=== PATIENT | female | born 1960 | race Caucasian/White ===

== ENCOUNTER 2016-05-23 11:32 | Emergency (ER) | payer OTHER ==
[~2016-05-23] VITALS: Ht 154.9 cm; Wt 55.8 kg
[~2016-05-23 11:32] MED LIST: ALPR2TAB5 PO; HYDR-971 PO; LAMO100T5 PO; LAMO200T3 PO; LEVE100020 PO; NAPR550T PO; OMEP40CA5 PO; PRAZ2CAP2 PO
[2016-05-23 12:15] VITALS: BP 158/95
[2016-05-23] MEDS ORDERED: PROAIR HFA8.5 GM INH (12:48)
[2016-05-23] MEDS ORDERED: AZIT250T PO (12:48)
[2016-05-23] MEDS ORDERED: PRED20TA PO (12:48)
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
== END 2016-05-23 12:57 | disposition home or self-care (01) ==
LOC: ER 11:32
DX: J06.9 Acute upper respiratory infection, unspecified (principal); F43.10 Post-traumatic stress disorder, unspecified; K21.9 Gastro-esophageal reflux disease without esophagitis; F31.9 Bipolar disorder, unspecified; Z88.1 Allergy status to other antibiotic agents; Z88.5 Allergy status to narcotic agent
CPT/HCPCS: 99283

== ENCOUNTER 2016-11-18 09:48 | Emergency (ER) | payer OTHER ==
[~2016-11-18] VITALS: Ht 157.5 cm; Wt 48.5 kg
[~2016-11-18 09:48] MED LIST changes: +AZIT250T PO; +PRED20TA PO; +PROAIR HFA8.5 GM INH
[2016-11-18] MEDS ORDERED: 0.9 % SODIUM CHLORIDE 10 ML DISP.SYRIN. IV PRN (10:00)
[2016-11-18] MEDS ORDERED: IV NORMAL SALINE 1000ML BAG 1,000 ML IV SCH (10:15)
[2016-11-18] MEDS ORDERED: ONDANSETRON PF 4 MG/2 ML VIAL. IV ONE (10:15)
--- NOTE | 2016-11-18 10:19 | EKG ---
[facility] [address] [place] [address] Test Date: 2016-11-18 Test Time: 10:05:29 Pat Name: KRIS ROMERO Department: Room: Gender: F [employer]tr [employer]: : 1960 Requested By: EMIR TUTTLE Order Number: [id number] Reading MD: Measurements Intervals [place] Rate: 62 P: 51 [place]: 158 QRS: 22 QRSD: 76 T: 53 QT: 372 QTc: 380 Interpretive Statements SINUS RHYTHM OTHERWISE NORMAL ECG RI6.01 Unconfirmed report No previous ECG available for comparison
[2016-11-18 10:28] LABS: BASO % 1 % (0-3); EOS % 1 % (0-3); HEMATOCRIT 42.8 % (36.0-47.0); HEMOGLOBIN 14.5 g/dL (12.0-15.5); LYMPH # 2.5 x10^3/uL (1.0-4.8); LYMPH % 41 % (24-48); MEAN CORPUSCULAR HEMOGLOBIN 31 pg (25-35); MEAN CORPUSCULAR HGB CONC 34 g/dL (31-37); MEAN CORPUSCULAR VOLUME 92 fL (79-100); MONO % 7 % (0-9); NEUT % 52 % (31-73); PLATELET COUNT 300 x10^3/uL (140-400); RED BLOOD COUNT 4.68 x10^6/uL (3.50-5.40); RED CELL DISTRIBUTION WIDTH 12.6 % (11.5-14.5); WHITE BLOOD COUNT 6.2 x10^3/uL (4.0-11.0)
[2016-11-18] MEDS ORDERED: MIDAZOLAM HCL/PF 5 MG/5 ML VIAL. IV ONE (10:30)
--- NOTE | 2016-11-18 10:33 | RAD ---
Indication fall. Loss of consciousness. Syncopal episode. A single view of the chest was obtained and is compared to an exam 07/08/2014. The heart and pulmonary vessels appear normal. The lungs are clear. There is no pleural fluid or pneumothorax. Scoliosis is noted. A significant change relative to the previous exam is not seen. IMPRESSION: No acute finding. No significant change
[2016-11-18 10:38] LABS: CALCIUM 9.5 mg/dL (8.5-10.1); GFR 56.9; POTASSIUM 3.9 mmol/L (3.5-5.1)
[2016-11-18 10:44] LABS: ALBUMIN 4.2 g/dL (3.4-5.0); DIRECT BILIRUBIN 0.1 mg/dL (0.0-0.2); TOTAL BILIRUBIN 0.5 mg/dL (0.2-1.0); TOTAL PROTEIN 7.3 g/dL (6.4-8.2)
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
[2016-11-18 10:52] LABS: CKMB MASS 0.8 ng/mL (0.0-3.6); CREATINE KINASE 62 U/L (26-192)
[2016-11-18] MEDS ORDERED: ONDA4TAB10 PO (10:54)
[2016-11-18 11:01] VITALS: BP 169/78
== END 2016-11-18 11:08 | disposition home or self-care (01) ==
LOC: ER 09:48
DX: F41.0 Panic disorder [episodic paroxysmal anxiety] (principal); R11.2 Nausea with vomiting, unspecified; R06.02 Shortness of breath; R07.89 Other chest pain; R20.2 Paresthesia of skin; F31.9 Bipolar disorder, unspecified; R06.4 Hyperventilation; F43.10 Post-traumatic stress disorder, unspecified; K21.9 Gastro-esophageal reflux disease without esophagitis; G43.909 Migraine, unspecified, not intractable, without status migrainosus; F12.10 Cannabis abuse, uncomplicated; Z87.891 Personal history of nicotine dependence; Z87.820 Personal history of traumatic brain injury; Z90.710 Acquired absence of both cervix and uterus; Z90.721 Acquired absence of ovaries, unilateral; Z88.5 Allergy status to narcotic agent; Z88.1 Allergy status to other antibiotic agents; Z88.8 Allergy status to other drugs, medicaments and biological substances
CPT/HCPCS: 36415; 71010; 80048; 80076; 82553; 83735; 83880; 84443; 84484; 85027; 93005; 96361; 96374; 99285; J2405; J7030

== ENCOUNTER 2017-01-02 15:27 | Emergency (ER) | payer OTHER ==
[~2017-01-02] VITALS: Ht 154.9 cm; Wt 53.1 kg
[~2017-01-02 15:27] MED LIST changes: +NAPR-682 PO; -NAPR550T PO; +ONDA4TAB10 PO
[2017-01-02 16:16] VITALS: BP 125/68
--- NOTE | 2017-01-02 17:33 | PHYS DOC ---
Past Medical History Past Medical History: Anxiety, Bipolar, Cancer, Depression, GERD, Migraines, Other Additional Past Medical Histor: TBI,night terrors,PTSD,PANIC ATTACKS,CERVICAL CA Past Surgical History: Cancer Surgery, Hysterectomy, Oophorectomy, Tonsillectomy, Other Additional Past Surgical Histo: cervical CA, lt.inguinal hernia repair, Alcohol Use: None Drug Use: Marijuana Adult General Chief Complaint Chief Complaint: FOREIGNBODY EAR HPI HPI Patient is a 56 year old female with history of anxiety, depression, GERD, who presents today stating she believes she has a piece of hearing inside the right ear. Patient denies any hearing loss. Review of Systems Review of Systems Constitutional: Denies fever or chills [] Eyes: Denies change in visual acuity, redness, or eye pain [] HENT: Foreign body to the right ear Musculoskeletal: Denies back pain or joint pain [] Integument: Denies rash or skin lesions [] Neurologic: Denies headache, focal weakness or sensory changes [] Allergies Allergies Allergies Coded Allergies Type Severity Reaction Last Updated Verified morphine Allergy Intermediate Unknown 10/10/13 No tetracycline Allergy Intermediate nausea 02/22/14 Yes lorazepam Allergy Unknown "IT DOES ME WRONG" 11/18/16 Yes Physical Exam Physical Exam Constitutional: Well developed, well nourished, no acute distress, non-toxic appearance. [] HENT: Normocephalic, atraumatic, bilateral external ears normal, oropharynx moist, no oral exudates, nose normal. [] Right ear canal has no foreign object. Skin: Warm, dry, no erythema, no rash. [] Back: No tenderness, no CVA tenderness. [] Extremities: No tenderness, no cyanosis, no clubbing, ROM intact, no edema. [] Neurologic: Alert and oriented X 3, normal motor function, normal sensory function, no focal deficits noted. [] Psychologic: Affect normal, judgement normal, mood normal. [] Current Patient Data Vital Signs Vital Signs Date Time Temp Pulse Resp B/P (MAP) Pulse Ox O2 Delivery O2 Flow Rate FiO2 01/02/17 16:16 98.4 57 18 98 Room Air 98.4 EKG EKG [] Radiology/Procedures Radiology/Procedures [] Course & Med Decision Making Course & Med Decision Making Pertinent Labs and Imaging studies reviewed. (See chart for details) Patient is in the ED with complaints of ear ringing in her right ear canal. I evaluated patient's right ear there was no foreign object RN Bhavana evaluated patient's right ear, there was no foreign object. We did flush the right ear canal, mild amount of cerumen was removed. Patient was discharged with instructions to follow-up with ENT of her choice. Dragon Disclaimer Dragon Disclaimer This electronic medical record was generated, in whole or in part, using a voice recognition dictation system. Departure Departure Impression: Primary Impression: Impacted cerumen of right ear Additional Impression: Foreign body of ear, right Disposition: HOME, SELF-CARE Condition: STABLE Referrals: LUCIANO MORENO MD (PCP) follow up with an ENT doctor of you choice Patient Instructions: Cerumen Impaction, Ear Foreign Body, [id number] Additional Instructions: You were seen for a possible foreign body to the right ear, none was found on exam. Follow up with ENT doctor over choice. Problem Qualifiers Additional Impression: Foreign body of ear, right Encounter type: initial encounter Qualified Codes: T16.1XXA - Foreign body in right ear, initial encounter JOCELYN NINO YEAST DISTILLER Jan 02, 2017 17:33
== END 2017-01-02 17:38 | disposition home or self-care (01) ==
LOC: ER 15:27
DX: H61.21 Impacted cerumen, right ear (principal); T16.1XXA Foreign body in right ear, initial encounter; K21.9 Gastro-esophageal reflux disease without esophagitis; F43.10 Post-traumatic stress disorder, unspecified; F31.9 Bipolar disorder, unspecified; G43.909 Migraine, unspecified, not intractable, without status migrainosus; Z87.820 Personal history of traumatic brain injury; Z88.5 Allergy status to narcotic agent; Z88.1 Allergy status to other antibiotic agents; Z88.8 Allergy status to other drugs, medicaments and biological substances; Y93.89 Activity, other specified; Y99.8 Other external cause status; Y92.89 Other specified places as the place of occurrence of the external cause
CPT/HCPCS: 69209; 99281; 99282

== ENCOUNTER → 2017-03-06 | Day surgery (SDC) | payer OTHER ==
[~2017-03-06] MED LIST changes: +ASPI-630 PO; +IV RINGERS,LACTATED 1000ML 1,000 ML IV SCH; +LIDOCAINE 1% PF 2 ML VIAL. ID PRN; +LIDOCAINE 2% PF Vial for OR 5 ML VIAL. ONE; +PROCHLORPERAZINE 10 MG/2 ML VIAL. IV PRN; +PROPOFOL 40 ML IV ONE; +fentaNYL PF VIAL 100 MCG/2 ML VIAL IV PRN
--- NOTE | 2017-03-06 12:31 | PDOC1 ---
History and Physical Date of Admission Date of Admission DATE: 03/06/17 TIME: 12:26 Source Source: Chart review, Patient History of Present Illness History of Present Illness 57 y/o female with positive Cologuard testing. No symptoms referable. No GI FH above GB disease. No prior colonoscopy. Long h/o heartburn, on PPI chronically. No prior EGD. Past Medical History Psych: Anxiety, Depression Past Surgical History Past Surgical History: Tonsillectomy, Hysterectomy Family History Family History: Coronary Artery Disease, Hypertension, Stroke Social History Smoke: Quit ALCOHOL: rare Drugs: None Current Medications Current Medications Current Medications Fentanyl Citrate (Fentanyl 2ml Vial) 25 mcg PRN Q5MIN PRN IV MILD PAIN; Start 03/06/17 at 07:00; Stop 03/06/17 at 18:00 Fentanyl Citrate (Fentanyl 2ml Vial) 50 mcg PRN Q5MIN PRN IV MODERATE PAIN; Start 03/06/17 at 07:00; Stop 03/06/17 at 18:00 Ringer's Solution 1,000 ml @ 30 mls/hr Q24H IV ; Start 03/06/17 at 07:00; Stop 03/06/17 at 18:59 Lidocaine HCl (Xylocaine-Mpf 1% Vial) 2 ml PRN 1X PRN ID PRIOR TO IV START; Start 03/06/17 at 07:00; Stop 03/06/17 at 18:00 Prochlorperazine Edisylate (Compazine) 5 mg PACU PRN PRN IV NAUSEA, MRX1; Start 03/06/17 at 07:00; Stop 03/06/17 at 18:00 Active Scripts Active Zofran Odt (Ondansetron) 4 Mg Tab.rapdis 4 Mg PO BID PRN 5 Days Proair Hfa Inhaler (Albuterol Sulfate) 8.5 Gm Hfa.aer.ad 1 Puff INH PRN Q6HRS PRN Reported Aspirin 81 Mg Tab.chew 81 Mg PO Lamictal (Lamotrigine) 100 Mg Tablet 100 Mg PO BID 100mg at noon and 100 mg at bedtime. Omeprazole 40 Mg Capsule.dr 40 Mg PO DAILY Keppra (Levetiracetam) 1,000 Mg Tablet 1,000 Mg PO BID Alprazolam 2 Mg Tablet 2 Mg PO TID Allergies Allergies: Coded Allergies: morphine (Unverified Allergy, Intermediate, Unknown, 03/06/17) lorazepam (Verified Adverse Reaction, Intermediate, "IT DOES ME WRONG", ) tetracycline (Verified Adverse Reaction, Intermediate, nausea, 03/06/17) ROS Review of System Otherwise negative. Physical Exam General: Alert, Oriented X3, Cooperative, No acute distress Lungs: Clear to auscultation Heart: S1S2, RRR, no gallops, no murmurs Abdomen: Normal bowel sounds, Soft, No tenderness, No hepatosplenomegaly, No masses Rectal Exam: deferred (to procedure) Extremities: No cyanosis, No edema Skin: No significant lesion Neuro: Normal gait, Normal speech, Strength at 5/5 X4 ext, Normal tone, Sensation intact, Cranial nerves 3-12 NL, Reflexes 2+ Psych/Mental Status: Mental status NL, Mood NL Vitals Vitals See nursing notes. VTE Prophylaxis Ordered VTE Prophylaxis Devices: No VTE Pharmacological Prophylaxi: No Assessment/Plan Assessment/Plan IMP: Positive FIT screen Chronic heartburn, r/o Rendon's. PLAN: colonoscopy/EGD LANE BATRES MD Mar 06, 2017 12:31
--- NOTE | 2017-03-06 13:31 | PDOC4 ---
PROCEDURE Procedure EGD/colonoscopy Indications: Chronic heartburn, r/o Rendon's/Screen, positive Cologuard Meds: per anesthesia Findings: E--Healed, grade indeterminate, reflux at GE junction. G--Normal D--Normal to second portion. CRISTÓBAL: normal. Scope advanced to TI. Mucosa normal. Scattered diverticula sigmoid to mid- transverse. NO polyps, masses, etc. Retroflex normal. Yoni well. IMP: Healed reflux, no Rendon's Diverticulosis Rec: Resume meds, diet. F/u with me prn. Consider repeat colonoscopy in 10 years. No need to repeat EGD unless persistent dysphagia or for evaluation of bleeding/anemia. LANE BATRES MD Mar 06, 2017 13:31
[2017-03-06 13:45] VITALS: BP 162/5
== END | disposition home or self-care (01) ==
LOC: ENDOS 11:47
PROVIDERS: ATTEND Internal Medicine Gastroenterology
DX: Z12.11 Encounter for screening for malignant neoplasm of colon (principal); K57.30 Diverticulosis of large intestine without perforation or abscess without bleeding; K21.0 Gastro-esophageal reflux disease with esophagitis; F41.9 Anxiety disorder, unspecified; F32.9 Major depressive disorder, single episode, unspecified; Z72.89 Other problems related to lifestyle; Z87.891 Personal history of nicotine dependence; Z90.710 Acquired absence of both cervix and uterus
CPT/HCPCS: 43235; 45378; J2704; J2001

== ENCOUNTER 2017-10-04 11:05 | Emergency (ER) | payer OTHER ==
[2017-10-04] MEDS: IV NORMAL SALINE 1000ML BAG 1,000 ML IV (11:44)
[2017-10-04 11:49] LABS: ADD MAN DIFF? NO
[2017-10-04 11:52] LABS: BILIRUBIN,URINE NEGATIVE (NEG); COLOR,URINE YELLOW; GLUCOSE,URINE NEGATIVE (NEG); NITRITE,URINE NEGATIVE (NEG); PROTEIN,URINE NEGATIVE (NEG-TRACE); UROBILINOGEN,URINE 0.2 mg/dL (0.2 mg/dL)
[2017-10-04 11:54] LABS: BASO # 0.1 x10^3/uL (0.0-0.2); BASO % 1 % (0-3); EOS % 1 % (0-3); HEMATOCRIT 38.3 % (36.0-47.0); HEMOGLOBIN 13.1 g/dL (12.0-15.5); LYMPH # 3.3 x10^3/uL (1.0-4.8); LYMPH % 40 % (24-48); MEAN CORPUSCULAR HEMOGLOBIN 32 pg (25-35); MEAN CORPUSCULAR HGB CONC 34 g/dL (31-37); MEAN CORPUSCULAR VOLUME 94 fL (79-100); MONO # 0.5 x10^3/uL (0.0-1.1); MONO % 6 % (0-9); NEUT # 4.4 x10^3uL (1.8-7.7); NEUT % 53 % (31-73); PLATELET COUNT 302 x10^3/uL (140-400); RED BLOOD COUNT 4.08 x10^6/uL (3.50-5.40); RED CELL DISTRIBUTION WIDTH 12.4 % (11.5-14.5); WHITE BLOOD COUNT 8.2 x10^3/uL (4.0-11.0)
[2017-10-04 11:59] LABS: CLARITY,URINE CLEAR
[2017-10-04 12:00] LABS: BACTERIA,URINE 0 /HPF (0-FEW); RBC,URINE 0 /HPF (0-2); SQUAMOUS EPITHELIAL CELL,UR FEW /LPF; WBC,URINE OCC /HPF (0-4)
[2017-10-04 12:01] LABS: ANION GAP 10 (6-14); BLOOD UREA NITROGEN 9 mg/dL (7-20); BUN/CREATININE RATIO 10 (6-20); CALCIUM 9.3 mg/dL (8.5-10.1); CARBON DIOXIDE 28 mmol/L (21-32); CHLORIDE 104 mmol/L (98-107); CREATININE 0.9 mg/dL (0.6-1.0); GFR 64.1; GLUCOSE 94 mg/dL (70-99); POTASSIUM 3.7 mmol/L (3.5-5.1); SODIUM 142 mmol/L (136-145)
[2017-10-04 12:06] LABS: CREATINE KINASE 87 U/L (26-192)
[2017-10-04 12:07] LABS: ALBUMIN 3.7 g/dL (3.4-5.0); ALBUMIN/GLOBULIN RATIO 1.2 (1.0-1.7); ALK PHOS 39 U/L (46-116); ALT (SGPT) 15 U/L (14-59); AST (SGOT) 12 U/L (15-37); TOTAL BILIRUBIN 0.3 mg/dL (0.2-1.0); TOTAL PROTEIN 6.9 g/dL (6.4-8.2)
[2017-10-04] MEDS: ONDANSETRON PF 4 MG/2 ML VIAL. IV (12:19)
== END 2017-10-04 13:50 | disposition home or self-care (01) ==
LOC: ER 11:05
DX: R53.1 Weakness (principal); R11.2 Nausea with vomiting, unspecified; M79.1 Myalgia; F43.10 Post-traumatic stress disorder, unspecified; K21.9 Gastro-esophageal reflux disease without esophagitis; F31.9 Bipolar disorder, unspecified; Z90.710 Acquired absence of both cervix and uterus; Z90.722 Acquired absence of ovaries, bilateral; F12.10 Cannabis abuse, uncomplicated; Z98.890 Other specified postprocedural states; Z88.1 Allergy status to other antibiotic agents; Z88.5 Allergy status to narcotic agent; Z88.8 Allergy status to other drugs, medicaments and biological substances
CPT/HCPCS: 36415; 80053; 81001; 82550; 85025; 96361; 96374; 99284-25; J2405; J7030

== ENCOUNTER 2017-11-14 16:03 | Emergency (ER) | payer OTHER ==
[2017-11-14 16:50] LABS: ADD MAN DIFF? NO
[2017-11-14] MEDS: IV NORMAL SALINE 1000ML BAG 1,000 ML IV (16:52)
[2017-11-14 16:55] LABS: BASO % 1 % (0-3); EOS % 1 % (0-3); HEMATOCRIT 38.6 % (36.0-47.0); HEMOGLOBIN 13.1 g/dL (12.0-15.5); LYMPH # 3.1 x10^3/uL (1.0-4.8); LYMPH % 48 % (24-48); MEAN CORPUSCULAR HEMOGLOBIN 32 pg (25-35); MEAN CORPUSCULAR HGB CONC 34 g/dL (31-37); MEAN CORPUSCULAR VOLUME 95 fL (79-100); MONO # 0.4 x10^3/uL (0.0-1.1); MONO % 6 % (0-9); NEUT # 2.9 x10^3uL (1.8-7.7); NEUT % 45 % (31-73); PLATELET COUNT 294 x10^3/uL (140-400); RED BLOOD COUNT 4.08 x10^6/uL (3.50-5.40); RED CELL DISTRIBUTION WIDTH 12.6 % (11.5-14.5); WHITE BLOOD COUNT 6.4 x10^3/uL (4.0-11.0)
[2017-11-14 17:00] LABS: ANION GAP 8 (6-14); BLOOD UREA NITROGEN 8 mg/dL (7-20); CALCIUM 8.8 mg/dL (8.5-10.1); CARBON DIOXIDE 32 mmol/L (21-32); CHLORIDE 104 mmol/L (98-107); GFR 56.7; GLUCOSE 94 mg/dL (70-99); POTASSIUM 3.5 mmol/L (3.5-5.1); SODIUM 144 mmol/L (136-145)
[2017-11-14 17:06] LABS: ACETAMIN < 2 mcg/ml (10-30); SALIC 3.3 mg/dL (2.8-20.0)
[2017-11-14 17:07] LABS: ETHANOL < 10 mg/dL (0-10)
[2017-11-14 17:10] LABS: BILIRUBIN,URINE NEGATIVE (NEG); CLARITY,URINE CLEAR; COLOR,URINE YELLOW; GLUCOSE,URINE NEGATIVE (NEG); NITRITE,URINE NEGATIVE (NEG); PH,URINE 7.5; PROTEIN,URINE NEGATIVE (NEG-TRACE); UROBILINOGEN,URINE 0.2 mg/dL (0.2 mg/dL)
[2017-11-14 17:19] LABS: BACTERIA,URINE 0 /HPF (0-FEW); RBC,URINE OCC /HPF (0-2); SQUAMOUS EPITHELIAL CELL,UR OCC /LPF; WBC,URINE OCC /HPF (0-4)
[2017-11-14 17:21] LABS: AMPHETAMINE/METHAMPHETAMINE NEG (NEG); BARBITURATES NEG (NEG); BENZODIAZEPINES POS (NEG); CANNABINOIDS POS (NEG); COCAINE NEG (NEG); ETHANOL, URINE NEG (NEG); METHADONE NEG (NEG); OPIATES NEG (NEG); PHENCYCLIDINE NEG (NEG)
== END 2017-11-14 19:57 | disposition home or self-care (01) ==
LOC: ER 16:03
DX: Z77.098 Contact with and (suspected) exposure to other hazardous, chiefly nonmedicinal, chemicals (principal); F41.9 Anxiety disorder, unspecified; F31.9 Bipolar disorder, unspecified; K21.9 Gastro-esophageal reflux disease without esophagitis; G43.909 Migraine, unspecified, not intractable, without status migrainosus; Z90.710 Acquired absence of both cervix and uterus; Z88.5 Allergy status to narcotic agent; Z88.1 Allergy status to other antibiotic agents; Z88.8 Allergy status to other drugs, medicaments and biological substances
CPT/HCPCS: 36415; 80048; 80307; 80329; 81001; 85025; 93005; 99285-25; G0480; G6039; J7030

== ENCOUNTER → 2020-06-04 | Outpatient (CLI) | payer MEDICARE ==
[2017-11-14 19:08] VITALS: BP 111/62
[~2020-06-04] MED LIST changes: +ALBU2.5V8 INH; +CRESTOR40 MG PO; +HYDR-3164 PO; -HYDR-971 PO; -IV RINGERS,LACTATED 1000ML 1,000 ML IV SCH; -LIDOCAINE 1% PF 2 ML VIAL. ID PRN; -LIDOCAINE 2% PF Vial for OR 5 ML VIAL. ONE; -OMEP40CA5 PO; +OMEP40CA7 PO; -PROAIR HFA8.5 GM INH; -PROCHLORPERAZINE 10 MG/2 ML VIAL. IV PRN; -PROPOFOL 40 ML IV ONE; -fentaNYL PF VIAL 100 MCG/2 ML VIAL IV PRN
--- NOTE | 2020-06-08 11:01 | RAD ---
DATE: 06/04/2020 12:43 PM EXAM: DIGITAL SCREEN BILAT W/CAD HISTORY: Screening COMPARISON: 06/17/2008 Bilateral full field craniocaudal and mediolateral oblique images were obtained using digital technique. This study was interpreted with the benefit of Computerized Aided Detection (CAD). FINDINGS: Breast Density: FATTY The Breast Parenchyma is primarily fatty replaced. Breast parenchyma level density A. No suspicious masses, microcalcifications or architectural distortion is present to suggest malignancy in either breast. The visualized axillae are unremarkable. IMPRESSION: No mammographic evidence of malignancy. BI-RADS CATEGORY: 1 NEGATIVE RECOMMENDED FOLLOW-UP: 12M 12 MONTH FOLLOW-UP Annual screening mammography is recommended, unless clinically indicated sooner based on symptoms or change in physical exam. PQRS compliance statement: Patient information was entered into a reminder system with a target due date for the next mammogram. Mammography is a sensitive method for finding small breast cancers, but it does not detect them all and is not a substitute for careful clinical examination. A negative mammogram does not negate a clinically suspicious finding and should not result in delay in biopsying a clinically suspicious abnormality. "Our facility is accredited by the [employer] Mammography Program."
== END ==
LOC: MAMMO 12:43
PROVIDERS: ATTEND Family Medicine
DX: Z12.31 Encounter for screening mammogram for malignant neoplasm of breast (principal)
CPT/HCPCS: 77067

== ENCOUNTER 2020-07-31 12:16 | Inpatient (IN) | payer MEDICARE ==
[~2020-07-31] VITALS: Ht 154.9 cm; Wt 54.3 kg
[~2020-07-31 12:16] MED LIST changes: -CRESTOR40 MG PO; +OMEP40CA45 PO; -OMEP40CA7 PO
[2020-07-31] MEDS ORDERED: ONDANSETRON PF 4 MG/2 ML VIAL. IV ONE (13:15)
[2020-07-31] MEDS ORDERED: fentaNYL PF VIAL 100 MCG/2 ML VIAL IV ONE ×2 (13:15→14:00)
[2020-07-31] MEDS ORDERED: IV NORMAL SALINE 1000ML BAG 1,000 ML IV ONE (13:15)
[2020-07-31 13:25] LABS: FECAL OB PT POSITIVE (NEG)
[2020-07-31 13:31] LABS: BASO # 0.1 x10^3/uL (0.0-0.2); BASO % 0 % (0-3); EOS % 0 % (0-3); HEMOGLOBIN 13.3 g/dL (12.0-15.5); LYMPH # 1.8 x10^3/uL (1.0-4.8); LYMPH % 9 % (24-48); MEAN CORPUSCULAR HEMOGLOBIN 31 pg (25-35); MEAN CORPUSCULAR HGB CONC 33 g/dL (31-37); MEAN CORPUSCULAR VOLUME 94 fL (79-100); MONO # 0.8 x10^3/uL (0.0-1.1); MONO % 4 % (0-9); NEUT # 16.8 x10^3/uL (1.8-7.7); NEUT % 86 % (31-73); PLATELET COUNT 301 x10^3/uL (140-400); RED BLOOD COUNT 4.25 x10^6/uL (3.50-5.40); WHITE BLOOD COUNT 19.5 x10^3/uL (4.0-11.0)
[2020-07-31 13:43] LABS: CALCIUM 9.5 mg/dL (8.5-10.1); GFR 56.2; POTASSIUM 3.4 mmol/L (3.5-5.1)
[2020-07-31 13:49] LABS: ALBUMIN/GLOBULIN RATIO 1.1 (1.0-1.7); MAGNESIUM 2.2 mg/dL (1.8-2.4); TOTAL BILIRUBIN 0.3 mg/dL (0.2-1.0); TOTAL PROTEIN 7.5 g/dL (6.4-8.2)
[2020-07-31 13:55] LABS: % BANDS 2 % (0-9); % LYMPHS 5 % (24-48); % MONOS 1 % (0-10); % SEGS 92 % (35-66); PLT ESTIMATE ADEQUATE (ADEQUATE)
[2020-07-31] MEDS ORDERED: CONTRAST GIVEN. MC PRN (14:15)
[2020-07-31] MEDS ORDERED: IOHEXOL 300 MG/ML 100ML VIAL. IV ONE (14:15)
[2020-07-31 14:17] LABS: BILIRUBIN,URINE NEGATIVE (NEG); CLARITY,URINE CLOUDY; COLOR,URINE YELLOW; NITRITE,URINE NEGATIVE (NEG); PH,URINE 7.5 (<5.0-8.0); PROTEIN,URINE NEGATIVE (NEG-TRACE); UROBILINOGEN,URINE 0.2 mg/dL (0.2 mg/dL)
[2020-07-31 14:23] LABS: RBC,URINE 0 /HPF (0-2); WBC,URINE OCC /HPF (0-4)
[2020-07-31 14:24] LABS: AMORPHOUS SEDIMENT,UR PRESENT /HPF; BACTERIA,URINE 0 /HPF (0-FEW)
--- NOTE | 2020-07-31 14:43 | RAD ---
INDICATION: Reason: Bloody diarrhea, lower abdominal pain / Spl. Instructions: OMNI 300 INJ 60 MLS / History: . COMPARISON: None. TECHNIQUE: Axial CT images obtained through the abdomen and pelvis with contrast. One or more of the following individualized dose reduction techniques were utilized for this examinat ion: 1. Automated exposure control; 2. Adjustment of the mA and/or kV according to patient size; 3 . Use of iterative reconstruction technique. FINDINGS: Mild linear opacity right lung base can be seen with atelectasis. Moderate calcific atherosclerosis. No intrahepatic bile duct dilation. No peripancreatic fluid collection. Spleen unremarkable. No hydronephrosis. Urinary bladder is partially distended. Wall thickening is seen throughout large portion of the colon with some mild indistinctness of the ad jacent fat. No periappendiceal inflammatory changes. No dilated loops of bowel to suggest obstruction. Scoliotic curvature the spine with multilevel degenerative changes with associated central canal and neural foraminal stenosis. IMPRESSION: * Wall thickening of the colon with adjacent mild edema to the fat. Can be seen with causes such as colitis. Electronically signed by: Seb Burton MD (07/31/2020 2:40 PM) [id number]
--- NOTE | 2020-07-31 14:46 | ED.ADGEN ---
Past Medical History Past Medical History: Anxiety, Bipolar, Cancer, Depression, GERD, Migraines, Other Additional Past Medical Histor: TBI,night terrors,PTSD,PANIC ATTACKS,CERVICAL CA Past Surgical History: Cancer Surgery, Hysterectomy, Oophorectomy, Tonsillectomy, Other Additional Past Surgical Histo: cervical CA, lt.inguinal hernia repair, Smoking Status: Current Every Day Smoker Alcohol Use: None Drug Use: Marijuana General Adult EDM: Chief Complaint: BLOODY STOOL HPI: HPI: Patient is a 60 year old female who presents emergency department with complaints of lower abdominal pain and bloody diarrhea that began today. Patient states she has had more than 5 episodes of bloody diarrhea today. She denies any history of hemorrhoids, and patient states she has been taking a baby aspirin for the last 2 days for her heart health. She denies any other use of blood thinners. Patient denies any constipation, back pain, dysuria, hematuria, or increased urinary frequency. She denies any fever, cough, body aches, sore throat, or shortness of breath. Patient complains of nausea and sharp cramping lower abdominal pain at this time. She currently rates her discomfort a 10 out of 10 on the pain scale, she denies any alleviating or exacerbating factors. Review of Systems: Review of Systems: Complete ROS is negative unless otherwise noted in HPI. Current Medications: Current Medications Medications (Trade) Dose Ordered Sig/Susan Start Time Stop Time Status Last Admin Dose Admin Ciprofloxacin/ Dextrose 200 ml @ 200 mls/hr 1X ONCE 07/31/20 15:15 07/31/20 16:14 DC Diphenhydramine HCl (Benadryl) 12.5 mg 1X ONCE 07/31/20 15:15 07/31/20 15:16 DC 07/31/20 15:24 12.5 MG Fentanyl Citrate (Fentanyl 2ml Vial) 50 mcg 1X ONCE 07/31/20 14:00 07/31/20 14:01 DC 07/31/20 14:08 50 MCG Hydromorphone HCl (Dilaudid) 0.5 mg 1X ONCE 07/31/20 15:15 07/31/20 15:16 DC 07/31/20 15:25 0.5 MG Info (CONTRAST GIVEN -- Rx MONITORING) 1 each PRN DAILY PRN 07/31/20 14:15 08/02/20 14:14 Iohexol (Omnipaque 300 Mg/ml) 60 ml 1X ONCE 07/31/20 14:15 07/31/20 14:16 DC 07/31/20 14:18 60 ML Metronidazole 100 ml @ 100 mls/hr 1X ONCE 07/31/20 15:15 07/31/20 16:14 DC 07/31/20 15:29 100 MLS/HR Ondansetron HCl (Zofran) 4 mg PRN Q8HRS PRN 07/31/20 15:15 08/01/20 15:14 07/31/20 15:24 4 MG Sodium Chloride 1,000 ml @ 125 mls/hr Q8H 07/31/20 15:15 08/01/20 15:14 07/31/20 15:29 125 MLS/HR Allergies: Allergies: Allergies Coded Allergies Type Severity Reaction Last Updated Verified morphine Allergy Intermediate Unknown 03/06/17 No lorazepam Adverse Reaction Intermediate "IT DOES ME WRONG" 03/06/17 Yes tetracycline Adverse Reaction Intermediate nausea 03/06/17 Yes Physical Exam: PE: See Above Constitutional: Well developed, well nourished, no acute distress, non-toxic appearance, appears uncomfortable. [] HENT: Normocephalic, atraumatic, bilateral external ears normal, nose normal. [] Eyes: PERRLA, EOMI, conjunctiva normal, no discharge. [] Neck: Normal range of motion, no stridor. [] Cardiovascular:Heart rate regular rhythm Lungs & Thorax: Respirations even and unlabored, no retractions, no respiratory distress Abdomen: soft, lower abdominal tenderness to palpation, no rebound tenderness, no guarding, no palpable masses Skin: Warm, dry, no erythema, no rash. [] Extremities: No cyanosis, ROM intact, no edema. [] Neurologic: Alert and oriented X 3, no focal deficits noted. [] Psychologic: Affect normal, judgement normal, mood normal. [] Current Patient Data: Labs: Laboratory Tests Test 07/31/20 13:00 07/31/20 13:15 07/31/20 14:05 Stool Occult Blood Positive (NEG) White Blood Count 19.5 x10^3/uL (4.0-11.0) H Red Blood Count 4.25 x10^6/uL (3.50-5.40) Hemoglobin 13.3 g/dL (12.0-15.5) Hematocrit 40.0 % (36.0-47.0) Mean Corpuscular Volume 94 fL (79-100) Mean Corpuscular Hemoglobin 31 pg (25-35) Mean Corpuscular Hemoglobin Concent 33 g/dL (31-37) Red Cell Distribution Width 12.0 % (11.5-14.5) Platelet Count 301 x10^3/uL (140-400) Neutrophils (%) (Auto) 86 % (31-73) H Lymphocytes (%) (Auto) 9 % (24-48) L Monocytes (%) (Auto) 4 % (0-9) Eosinophils (%) (Auto) 0 % (0-3) Basophils (%) (Auto) 0 % (0-3) Neutrophils # (Auto) 16.8 x10^3/uL (1.8-7.7) H Lymphocytes # (Auto) 1.8 x10^3/uL (1.0-4.8) Monocytes # (Auto) 0.8 x10^3/uL (0.0-1.1) Eosinophils # (Auto) 0.0 x10^3/uL (0.0-0.7) Basophils # (Auto) 0.1 x10^3/uL (0.0-0.2) Segmented Neutrophils % 92 % (35-66) H Band Neutrophils % 2 % (0-9) Lymphocytes % 5 % (24-48) L Monocytes % 1 % (0-10) Platelet Estimate Adequate (ADEQUATE) Sodium Level 144 mmol/L (136-145) Potassium Level 3.4 mmol/L (3.5-5.1) L Chloride Level 106 mmol/L (98-107) Carbon Dioxide Level 31 mmol/L (21-32) Anion Gap 7 (6-14) Blood Urea Nitrogen 15 mg/dL (7-20) Creatinine 1.0 mg/dL (0.6-1.0) Estimated GFR (Cockcroft-Gault) 56.2 BUN/Creatinine Ratio 15 (6-20) Glucose Level 157 mg/dL (70-99) H Calcium Level 9.5 mg/dL (8.5-10.1) Magnesium Level 2.2 mg/dL (1.8-2.4) Total Bilirubin 0.3 mg/dL (0.2-1.0) Aspartate Amino Transferase (AST) 14 U/L (15-37) L Alanine Aminotransferase (ALT) 16 U/L (14-59) Alkaline Phosphatase 42 U/L (46-116) L Total Protein 7.5 g/dL (6.4-8.2) Albumin 4.0 g/dL (3.4-5.0) Albumin/Globulin Ratio 1.1 (1.0-1.7) Lipase 134 U/L (73-393) Urine Collection Type Void Urine Color Yellow Urine Clarity Cloudy Urine pH 7.5 (<5.0-8.0) Urine Specific [place] 1.010 (1.000-1.030) Urine Protein Negative mg/dL (NEG-TRACE) Urine Glucose (UA) Negative mg/dL (NEG) Urine Ketones (Stick) 15 mg/dL (NEG) Urine Blood Negative (NEG) Urine Nitrite Negative (NEG) Urine Bilirubin Negative (NEG) Urine Urobilinogen Dipstick 0.2 mg/dL (0.2 mg/dL) Urine Leukocyte Esterase Negative (NEG) Urine RBC 0 /HPF (0-2) Urine WBC Occ /HPF (0-4) Urine Squamous Epithelial Cells Few /LPF Urine Amorphous Sediment Present /HPF Urine Bacteria 0 /HPF (0-FEW) Laboratory Tests 07/31/20 13:15 Laboratory Tests 07/31/20 13:15 Vital Signs: Vital Signs Date Time Temp Pulse Resp B/P (MAP) Pulse Ox O2 Delivery O2 Flow Rate FiO2 07/31/20 15:25 18 99 Room Air 07/31/20 12:16 97.3 61 162/78 (106) 97.3 EKG: EKG: [] Heart Score: C/O Chest Pain: No Risk Scores: Score 0 - 3: 2.5% MACE over next 6 weeks - Discharge Home Score 4 - 6: 20.3% MACE over next 6 weeks - Admit for Clinical Observation Score 7 - 10: 72.7% MACE over next 6 weeks - Early Invasive Strategies Radiology/Procedures: Radiology/Procedures: PROCEDURE: CT ABD PELV W/ IV CONTRST ONLY INDICATION: Reason: Bloody diarrhea, lower abdominal pain / Spl. Instructions: OMNI 300 INJ 60 MLS / History: . COMPARISON: None. TECHNIQUE: Axial CT images obtained through the abdomen and pelvis with contrast. One or more of the following individualized dose reduction techniques were utilized for this examination: 1. Automated exposure control; 2. Adjustment of the mA and/or kV according to patient size; 3. Use of iterative reconstruction technique. FINDINGS: Mild linear opacity right lung base can be seen with atelectasis. Moderate calcific atherosclerosis. No intrahepatic bile duct dilation. No peripancreatic fluid collection. Spleen unremarkable. No hydronephrosis. Urinary bladder is partially distended. Wall thickening is seen throughout large portion of the colon with some mild indistinctness of the adjacent fat. No periappendiceal inflammatory changes. No dilated loops of bowel to suggest obstruction. Scoliotic curvature the spine with multilevel degenerative changes with associated central canal and neural foraminal stenosis. IMPRESSION: * Wall thickening of the colon with adjacent mild edema to the fat. Can be seen with causes such as colitis. Electronically signed by: Seb Burton MD (07/31/2020 2:40 PM) [id number] [] Course & Med Decision Making: Course & Med Decision Making Pertinent Labs and Imaging studies reviewed. (See chart for details) [id number]-spoke with Dr. Rosa who is the admitting physician, and care was assumed following discussion of patient. Will admit patient for colitis, bloody diarrhea, and lower abdominal pain. Will order NS at 125 an hour, and initiate Flagyl and Cipro antibiotics Patient's vital signs stable. Patient remains afebrile, appears nontoxic, r espirations even and unlabored. Patient will be admitted to the medical/surgical floor. Patient's case and plan of care also discussed with Dr. Deleon [] Jimi Disclaimer: Jimi Disclaimer: This electronic medical record was generated, in whole or in part, using a voice recognition dictation system. Departure Departure Impression: Primary Impression: Colitis Additional Impressions: Bloody diarrhea Lower abdominal pain Disposition: ADMITTED INPT THIS HOSP Admitting Physician: MARIA DEL ROSARIO (Jayro) Condition: STABLE Referrals: LANE CHAIDEZ MD (PCP) Problem Qualifiers DELANO GALLARDO APRN Jul 31, 2020 14:46
[2020-07-31] MEDS ORDERED: HYDROmorphone 2 MG/ML VIAL IVP ONE ×2 (15:15→18:15)
[2020-07-31] MEDS ORDERED: CIPROFLOXACIN 400MG PREMIX 200 ML IV ONE (15:15)
[2020-07-31] MEDS ORDERED: IV NORMAL SALINE 1000ML BAG 1,000 ML IV SCH (15:15)
[2020-07-31] MEDS ORDERED: diphenhydrAMINE 50 MG/ML VIAL IVP ONE (15:15)
[2020-07-31] MEDS: ONDANSETRON PF 4 MG/2 ML VIAL. IV PRN ×2 (15:24→20:43)
[2020-07-31] MEDS ORDERED: lamoTRIgine 100 MG TABLET. PO ONE (17:15)
[2020-07-31] MEDS ORDERED: SALIVA STIMULANT AGENT 44ML SPRAY BOTTLE. PO PRN (18:15)
[2020-07-31 19:00] VITALS: BP 147/77
--- NOTE | 2020-07-31 19:22 | PDOC1 ---
History and Physical Date of Admission Date of Admission DATE: 07/31/20 TIME: 19:16 Identification/Chief Complaint Chief Complaint abd pain, blood in stool Source Source: Chart review, Patient History of Present Illness History of Present Illness Ms. Keane is a 60 year old female admit for bloody stool, acute abd pain and vomiting. She reports more than 5 episodes of bloody diarrhea today, and there is some in the bedside commode in the ER, mostly water, some blood. only taking aspirin, no other change, sudden nausea and pain started today, then bloody diarrhea, she is upset about being late on her Xanax when I saw her and was upset about NPO order. . Patient complains of nausea and sharp cramping lower abdominal pain at this time. pain 8;10 Past Medical History Pulmonary: Asthma GI: No pertinent hx Psych: Anxiety, Depression, Other (brain injury) Past Surgical History Past Surgical History: Tonsillectomy, Hysterectomy Family History Family History: Coronary Artery Disease, Hypertension, Stroke Social History Smoke: Quit ALCOHOL: rare Drugs: None Current Problem List Problem List Problems Medical Problems: (1) Bloody diarrhea Status: Acute (2) Colitis Status: Acute (3) Lower abdominal pain Status: Acute Current Medications Current Medications Current Medications Fentanyl Citrate (Fentanyl 2ml Vial) 50 mcg 1X ONCE IV Last administered on 07/31/20at 13:20; Start 07/31/20 at 13:15; Stop 07/31/20 at 13:16; Status DC Ondansetron HCl (Zofran) 4 mg 1X ONCE IV Last administered on 07/31/20at 13:20; Start 07/31/20 at 13:15; Stop 07/31/20 at 13:16; Status DC Sodium Chloride 1,000 ml @ 1,000 mls/hr 1X ONCE IV Last administered on 07/31/20at 13:19; Start 07/31/20 at 13:15; Stop 07/31/20 at 14:14; Status DC Fentanyl Citrate (Fentanyl 2ml Vial) 50 mcg 1X ONCE IV Last administered on 07/31/20at 14:08; Start 07/31/20 at 14:00; Stop 07/31/20 at 14:01; Status DC Iohexol (Omnipaque 300 Mg/ml) 60 ml 1X ONCE IV Last administered on 07/31/20at 14:18; Start 07/31/20 at 14:15; Stop 07/31/20 at 14:16; Status DC Info (CONTRAST GIVEN -- Rx MONITORING) 1 each PRN DAILY PRN MC SEE COMMENTS; Start 07/31/20 at 14:15; Stop 08/02/20 at 14:14 Hydromorphone HCl (Dilaudid) 0.5 mg 1X ONCE IVP Last administered on 07/31/20at 15:25; Start 07/31/20 at 15:15; Stop 07/31/20 at 15:16; Status DC Diphenhydramine HCl (Benadryl) 12.5 mg 1X ONCE IVP Last administered on 07/31/20at 15:24; Start 07/31/20 at 15:15; Stop 07/31/20 at 15:16; Status DC Ondansetron HCl (Zofran) 4 mg PRN Q8HRS PRN IV NAUSEA/VOMITING Last administered on 07/31/20at 15:24; Start 07/31/20 at 15:15; Stop 08/03/20 at 06:00 Sodium Chloride 1,000 ml @ 0 mls/hr Q8H IV Last administered on 07/31/20at 15:29; Start 07/31/20 at 15:15; Stop 07/31/20 at 18:26; Status DC Metronidazole 100 ml @ 100 mls/hr 1X ONCE IV Last administered on 07/31/20at 15:29; Start 07/31/20 at 15:15; Stop 07/31/20 at 16:14; Status DC Ciprofloxacin/ Dextrose 200 ml @ 200 mls/hr 1X ONCE IV Last administered on 07/31/20at 17:21; Start 07/31/20 at 15:15; Stop 07/31/20 at 16:14; Status DC Lamotrigine (LaMICtal) 100 mg 1X ONCE PO Last administered on 07/31/20at 17:20; Start 07/31/20 at 17:15; Stop 07/31/20 at 17:16; Status DC Hydromorphone HCl (Dilaudid) 0.5 mg 1X ONCE IVP ; Start 07/31/20 at 18:15; Stop 07/31/20 at 18:16; Status DC Albuterol Sulfate (Ventolin Neb Soln) 2.5 mg PRN Q6HRS PRN NEB SHORTNESS OF BREATH; Start 07/31/20 at 18:15 Lamotrigine (LaMICtal) 100 mg BID PO ; Start 07/31/20 at 21:00 Ondansetron HCl (Zofran Odt) 4 mg PRN BID PRN PO NAUSEA/VOMITING; Start 07/31/20 at 18:15 Saliva Substitute (Biotene Moisturizing Mouth) 2 spray PRN Q15MIN PRN PO DRY MOUTH; Start 07/31/20 at 18:15 Metronidazole 100 ml @ 100 mls/hr Q8HRS IV ; Start 07/31/20 at 22:00 Alprazolam (Xanax) 2 mg TID PO ; Start 07/31/20 at 21:00; Status Cancel Levetiracetam (Keppra) 1,000 mg BID PO ; Start 07/31/20 at 21:00 Pantoprazole Sodium (Protonix) 40 mg DAILYAC PO ; Start 08/01/20 at 07:30 Lorazepam (Ativan Inj) 2 mg 1X ONCE IVP ; Start 07/31/20 at 18:30; Stop 07/31/20 at 18:35; Status DC Potassium Chloride/Dextrose/ Sod Cl 1,000 ml @ 100 mls/hr Q10H IV ; Start 07/31/20 at 20:00 Alprazolam (Xanax) 2 mg TID PO ; Start 07/31/20 at 19:00 Ciprofloxacin (Cipro) 500 mg BID PO ; Start 07/31/20 at 21:00 Active Scripts Active Zofran Odt (Ondansetron) 4 Mg Tab.rapdis 4 Mg PO BID PRN 5 Days Proair Hfa Inhaler (Albuterol Sulfate) 8.5 Gm Hfa.aer.ad 1 Puff INH PRN Q6HRS PRN Reported Aspirin 81 Mg Tab.chew 81 Mg PO Lamictal (Lamotrigine) 100 Mg Tablet 100 Mg PO BID 100mg at noon and 100 mg at bedtime. Omeprazole 40 Mg Capsule.dr 40 Mg PO DAILY Keppra (Levetiracetam) 1,000 Mg Tablet 1,000 Mg PO BID Alprazolam 2 Mg Tablet 2 Mg PO TID Allergies Allergies: Coded Allergies: morphine (Unverified Allergy, Intermediate, Unknown, 03/06/17) lorazepam (Verified Adverse Reaction, Intermediate, "IT DOES ME WRONG", 03/06/17) tetracycline (Verified Adverse Reaction, Intermediate, nausea, 03/06/17) ROS Review of System complained of thirst x3, asked for Sprite x4 General: YES: Chills, Fatigue, Malaise; No: Night Sweats, Appetite, Other PSYCHOLOGICAL ROS: YES: Anxiety, Irritablity, Sleep disturbances Eyes: No Blurry vision, No Decreased vision, No Double vision, No Dry eyes, No Excessive tearing, No Eye Pain, No Itchy Eyes, No Loss of vision, No Photophobia, No Scotomata, No Uses contacts, No Uses glasses, No Other HEENT: YES: Heacaches; No: Visual Changes, Hearing change, Nasal congestion, Nasal discharge, Oral lesions, Sinus pain, Sore Throat, Epistaxis, Sneezing, Snoring, Tinnitus, Vertigo, Vocal changes, Other Respiratory: No: Cough, Hemoptysis, Orthopnea, Pleuritic Pain, Shortness of breath, SOB with excertion, Sputum Changes, Stridor, Tachypnea, Wheezing, Other Cardiovascular: No Chest Pain, No Palpitations, No Orthopnea, No Paroxysmal Noc. Dyspnea, No Edema, No Lt Headedness, No Other Gastrointestinal: Yes Nausea, Yes Vomiting, Yes Abdominal Pain; No Diarrhea, No Constipation, No Melena, No Hematochezia, No Other Genitourinary: No Dysuria, No Frequency, No Incontinence, No Hematuria, No Retention, No Discharge, No Urgency, No Pain, No Flank Pain, No Other, No , No , No , No , No , No , No Musculoskeletal: Yes Joint Stiffness; No Gait Disturbance, No Joint Pain, No Joint Swelling, No Muscle Pain, No Muscular Weakness, No Pain In:, No Swelling In:, No Other Neurological: No Behavorial Changes, No Bowel/Bladder ControlChng, No Confusion, No Dizziness, No Gait Disturbance, No Headaches, No Impaired Coord/balance, No Memory Loss, No Numbness/Tingling, No Seizures, No Speech Problems, No Tremors, No Visual Changes, No Weakness, No Other Skin: Yes Dry Skin; No Eczema, No Hair Changes, No Lumps, No Mole Changes, No Mottling, No Nail Changes, No Pruritus, No Rash, No Skin Lesion Changes, No Other, No Acne Physical Exam General: Alert, moderate distress HEENT: Atraumatic, PERRLA, EOMI Lungs: Clear to auscultation, Normal air movement Heart: S1S2, no gallops, no murmurs Abdomen: Normal bowel sounds, Soft Extremities: No clubbing, No edema Skin: No rashes Neuro: Normal gait, Normal speech, Normal tone Psych/Mental Status: Mental status NL, Mood NL Vitals Vitals Vital Signs Date Time Temp Pulse Resp B/P (MAP) Pulse Ox O2 Delivery O2 Flow Rate FiO2 07/31/20 15:25 18 99 Room Air 07/31/20 12:16 97.3 61 162/78 (106) 97.3 Labs Labs Laboratory Tests Test 07/31/20 13:00 07/31/20 13:15 07/31/20 14:05 Stool Occult Blood Positive (NEG) White Blood Count 19.5 x10^3/uL (4.0-11.0) Red Blood Count 4.25 x10^6/uL (3.50-5.40) Hemoglobin 13.3 g/dL (12.0-15.5) Hematocrit 40.0 % (36.0-47.0) Mean Corpuscular Volume 94 fL (79-100) Mean Corpuscular Hemoglobin 31 pg (25-35) Mean Corpuscular Hemoglobin Concent 33 g/dL (31-37) Red Cell Distribution Width 12.0 % (11.5-14.5) Platelet Count 301 x10^3/uL (140-400) Neutrophils (%) (Auto) 86 % (31-73) Lymphocytes (%) (Auto) 9 % (24-48) Monocytes (%) (Auto) 4 % (0-9) Eosinophils (%) (Auto) 0 % (0-3) Basophils (%) (Auto) 0 % (0-3) Neutrophils # (Auto) 16.8 x10^3/uL (1.8-7.7) Lymphocytes # (Auto) 1.8 x10^3/uL (1.0-4.8) Monocytes # (Auto) 0.8 x10^3/uL (0.0-1.1) Eosinophils # (Auto) 0.0 x10^3/uL (0.0-0.7) Basophils # (Auto) 0.1 x10^3/uL (0.0-0.2) Segmented Neutrophils % 92 % (35-66) Band Neutrophils % 2 % (0-9) Lymphocytes % 5 % (24-48) Monocytes % 1 % (0-10) Platelet Estimate Adequate (ADEQUATE) Sodium Level 144 mmol/L (136-145) Potassium Level 3.4 mmol/L (3.5-5.1) Chloride Level 106 mmol/L (98-107) Carbon Dioxide Level 31 mmol/L (21-32) Anion Gap 7 (6-14) Blood Urea Nitrogen 15 mg/dL (7-20) Creatinine 1.0 mg/dL (0.6-1.0) Estimated GFR (Cockcroft-Gault) 56.2 BUN/Creatinine Ratio 15 (6-20) Glucose Level 157 mg/dL (70-99) Calcium Level 9.5 mg/dL (8.5-10.1) Magnesium Level 2.2 mg/dL (1.8-2.4) Total Bilirubin 0.3 mg/dL (0.2-1.0) Aspartate Amino Transf (AST/SGOT) 14 U/L (15-37) Alanine Aminotransferase (ALT/SGPT) 16 U/L (14-59) Alkaline Phosphatase 42 U/L (46-116) Total Protein 7.5 g/dL (6.4-8.2) Albumin 4.0 g/dL (3.4-5.0) Albumin/Globulin Ratio 1.1 (1.0-1.7) Lipase 134 U/L (73-393) Urine Collection Type Void Urine Color Yellow Urine Clarity Cloudy Urine pH 7.5 (<5.0-8.0) Urine Specific [place] 1.010 (1.000-1.030) Urine Protein Negative mg/dL (NEG-TRACE) Urine Glucose (UA) Negative mg/dL (NEG) Urine Ketones (Stick) 15 mg/dL (NEG) Urine Blood Negative (NEG) Urine Nitrite Negative (NEG) Urine Bilirubin Negative (NEG) Urine Urobilinogen Dipstick 0.2 mg/dL (0.2 mg/dL) Urine Leukocyte Esterase Negative (NEG) Urine RBC 0 /HPF (0-2) Urine WBC Occ /HPF (0-4) Urine Squamous Epithelial Cells Few /LPF Urine Amorphous Sediment Present /HPF Urine Bacteria 0 /HPF (0-FEW) Laboratory Tests Test 07/31/20 13:00 07/31/20 13:15 07/31/20 14:05 Stool Occult Blood Positive (NEG) White Blood Count 19.5 x10^3/uL (4.0-11.0) Red Blood Count 4.25 x10^6/uL (3.50-5.40) Hemoglobin 13.3 g/dL (12.0-15.5) Hematocrit 40.0 % (36.0-47.0) Mean Corpuscular Volume 94 fL (79-100) Mean Corpuscular Hemoglobin 31 pg (25-35) Mean Corpuscular Hemoglobin Concent 33 g/dL (31-37) Red Cell Distribution Width 12.0 % (11.5-14.5) Platelet Count 301 x10^3/uL (140-400) Neutrophils (%) (Auto) 86 % (31-73) Lymphocytes (%) (Auto) 9 % (24-48) Monocytes (%) (Auto) 4 % (0-9) Eosinophils (%) (Auto) 0 % (0-3) Basophils (%) (Auto) 0 % (0-3) Neutrophils # (Auto) 16.8 x10^3/uL (1.8-7.7) Lymphocytes # (Auto) 1.8 x10^3/uL (1.0-4.8) Monocytes # (Auto) 0.8 x10^3/uL (0.0-1.1) Eosinophils # (Auto) 0.0 x10^3/uL (0.0-0.7) Basophils # (Auto) 0.1 x10^3/uL (0.0-0.2) Segmented Neutrophils % 92 % (35-66) Band Neutrophils % 2 % (0-9) Lymphocytes % 5 % (24-48) Monocytes % 1 % (0-10) Platelet Estimate Adequate (ADEQUATE) Sodium Level 144 mmol/L (136-145) Potassium Level 3.4 mmol/L (3.5-5.1) Chloride Level 106 mmol/L (98-107) Carbon Dioxide Level 31 mmol/L (21-32) Anion Gap 7 (6-14) Blood Urea Nitrogen 15 mg/dL (7-20) Creatinine 1.0 mg/dL (0.6-1.0) Estimated GFR (Cockcroft-Gault) 56.2 BUN/Creatinine Ratio 15 (6-20) Glucose Level 157 mg/dL (70-99) Calcium Level 9.5 mg/dL (8.5-10.1) Magnesium Level 2.2 mg/dL (1.8-2.4) Total Bilirubin 0.3 mg/dL (0.2-1.0) Aspartate Amino Transf (AST/SGOT) 14 U/L (15-37) Alanine Aminotransferase (ALT/SGPT) 16 U/L (14-59) Alkaline Phosphatase 42 U/L (46-116) Total Protein 7.5 g/dL (6.4-8.2) Albumin 4.0 g/dL (3.4-5.0) Albumin/Globulin Ratio 1.1 (1.0-1.7) Lipase 134 U/L (73-393) Urine Collection Type Void Urine Color Yellow Urine Clarity Cloudy Urine pH 7.5 (<5.0-8.0) Urine Specific [place] 1.010 (1.000-1.030) Urine Protein Negative mg/dL (NEG-TRACE) Urine Glucose (UA) Negative mg/dL (NEG) Urine Ketones (Stick) 15 mg/dL (NEG) Urine Blood Negative (NEG) Urine Nitrite Negative (NEG) Urine Bilirubin Negative (NEG) Urine Urobilinogen Dipstick 0.2 mg/dL (0.2 mg/dL) Urine Leukocyte Esterase Negative (NEG) Urine RBC 0 /HPF (0-2) Urine WBC Occ /HPF (0-4) Urine Squamous Epithelial Cells Few /LPF Urine Amorphous Sediment Present /HPF Urine Bacteria 0 /HPF (0-FEW) VTE Prophylaxis Ordered VTE Prophylaxis Devices: Yes VTE Pharmacological Prophylaxi: Contraindicated Assessment/Plan Assessment/Plan acute abdominal pain with nausea and vomiting hematochezia, acute blood loss per rectum, check Q6 CBC overnight, Hgb is excellent range now acute infectious colitis, IV fluid, Iv abx given, sepsis from Colitis Anxiety disorder, home meds, seizure disorder, Keppra, lamictal History of traumatic brain injury, remote "that has caused all my problems" hx of tobacco use, has quit, hypokalemia, will bolus NS, and start replacement fluid Justifications for Admission Other Justification URMILA ROSE MD Jul 31, 2020 19:22
[2020-07-31] MEDS ORDERED: CRESTOR40 MG PO (20:18)
[2020-07-31] MEDS: CIPROFLOXACIN HCL 250 MG TABLET. PO SCH (20:26)
--- NOTE | 2020-07-31 20:26 | NUR ---
Cipro non-administered d/t pt. just receiving dose around 1730
--- NOTE | 2020-07-31 20:31 | NUR ---
Pt. arrived on unit at 1940 by bed from ED. Call light is within reach with bed in lowest position. WIll continue to monitor.
[2020-07-31] MEDS: levETIRAcetam 500 MG TABLET PO SCH (20:36)
[2020-07-31] MEDS: lamoTRIgine 100 MG TABLET. PO SCH (20:36)
[2020-07-31] MEDS: ALPRAZolam 1 MG TABLET PO SCH (20:36)
[2020-07-31] MEDS: POTASSIUM CL 20MEQ D5-0.45NACL 1,000 ML IV SCH (20:39)
[2020-07-31] MEDS: fentaNYL PF VIAL 100 MCG/2 ML VIAL IVP PRN (20:41)
[2020-07-31] MEDS ORDERED: ALPRAZolam 1 MG TABLET PO SCH (21:00)
[2020-07-31] MEDS ORDERED: fentaNYL PF VIAL 100 MCG/2 ML VIAL IVP ONE (21:45)
[2020-07-31 22:16] LABS: HEMATOCRIT 37.6 % (36.0-47.0); HEMOGLOBIN 12.6 g/dL (12.0-15.5); RED BLOOD COUNT 4.02 x10^6/uL (3.50-5.40); WHITE BLOOD COUNT 16.8 x10^3/uL (4.0-11.0)
[2020-07-31 23:00] VITALS: BP 164/65
[2020-08-01] MEDS: fentaNYL PF VIAL 100 MCG/2 ML VIAL IVP PRN (02:48)
[2020-08-01 02:58] VITALS: BP 163/85
[2020-08-01] MEDS ORDERED: ONDANSETRON PF 4 MG/2 ML VIAL. IVP ONE (03:15)
[2020-08-01] MEDS: ONDANSETRON PF 4 MG/2 ML VIAL. IV PRN (03:43)
[2020-08-01] MEDS: ALBUTEROL SULFATE 2.5 MG/3 ML NEBU. NEB PRN ×2 (04:00→11:24)
[2020-08-01 05:32] LABS: BASO % 0 % (0-3); EOS % 0 % (0-3); HEMATOCRIT 37.9 % (36.0-47.0); HEMOGLOBIN 12.5 g/dL (12.0-15.5); LYMPH % 13 % (24-48); MEAN CORPUSCULAR HEMOGLOBIN 31 pg (25-35); MEAN CORPUSCULAR HGB CONC 33 g/dL (31-37); MEAN CORPUSCULAR VOLUME 94 fL (79-100); MONO # 0.7 x10^3/uL (0.0-1.1); MONO % 5 % (0-9); NEUT # 12.5 x10^3/uL (1.8-7.7); NEUT % 82 % (31-73); PLATELET COUNT 258 x10^3/uL (140-400); RED BLOOD COUNT 4.04 x10^6/uL (3.50-5.40); RED CELL DISTRIBUTION WIDTH 12.5 % (11.5-14.5); WHITE BLOOD COUNT 15.2 x10^3/uL (4.0-11.0)
[2020-08-01 06:01] LABS: CALCIUM 8.6 mg/dL (8.5-10.1); CREATININE 0.8 mg/dL (0.6-1.0); GFR 72.7; POTASSIUM 3.3 mmol/L (3.5-5.1)
[2020-08-01] MEDS: POTASSIUM CL 20MEQ D5-0.45NACL 1,000 ML IV SCH ×2 (06:22→15:31)
[2020-08-01] MEDS: PANTOPRAZOLE 40 MG TABLET.DR. PO SCH (06:23)
[2020-08-01 07:00] VITALS: BP 152/71
[2020-08-01] MEDS: lamoTRIgine 100 MG TABLET. PO SCH ×2 (07:49→19:47)
[2020-08-01] MEDS: ALPRAZolam 1 MG TABLET PO SCH ×3 (07:50→19:47)
[2020-08-01] MEDS: CIPROFLOXACIN HCL 250 MG TABLET. PO SCH ×2 (07:50→19:47)
[2020-08-01] MEDS: levETIRAcetam 500 MG TABLET PO SCH ×2 (07:50→20:01)
--- NOTE | 2020-08-01 09:03 | PDOC ---
[employer] PROGRESS NOTE Date of Service DOS: DATE: 08/01/20 TIME: 09:00 Chief Complaint Chief Complaint acute abdominal pain with nausea and vomiting hematochezia, acute blood loss per rectum, check Q6 CBC overnight, Hgb is excellent range now acute infectious colitis, IV fluid, Iv abx given, sepsis from Colitis Anxiety disorder, home meds, seizure disorder, Keppra, lamictal History of traumatic brain injury, remote "that has caused all my problems" hx of tobacco use, has quit, hypokalemia, will bolus NS, and start replacement fluid History of Present Illness History of Present Illness Ms. Keane is a 60 year old female admit for bloody stool, acute abd pain and vomiting. She reports more than 5 episodes of bloody diarrhea today, and there is some in the bedside commode in the ER, mostly water, some blood. only taking aspirin, no other change, sudden nausea and pain started today, then bloody diarrhea, she is upset about being late on her Xanax when I saw her and was upset about NPO order. . Patient complains of nausea and sharp cramping lower abdominal pain at this time. pain 8;10 08/01/2020 Patient seen and evaluated. Afebrile. Still with some bloody diarrhea and vomiting this morning, however she feels this is improving. She has not attem pted anything by mouth, will advance diet to clear liquids. Will continue with IV antibiotics. Plan to discharge patient home with Flagyl and ciprofloxacin, and recommend outpatient follow-up with GI and PCP. If does not continue to improve will consult GI for further recommendations. Vitals/I&O Vitals/I&O: Vital Signs Date Time Temp Pulse Resp B/P (MAP) Pulse Ox O2 Delivery O2 Flow Rate FiO2 08/01/20 07:00 98.7 60 18 152/71 (98) 98 Room Air 98.7 Physical Exam General: Alert, Cooperative, mild distress Heart: Regular rate Lungs: Clear Abdomen: Normal bowel sounds, Soft Extremities: No clubbing, No edema Skin: No rashes Labs Labs: Laboratory Tests Test 07/31/20 13:00 07/31/20 13:15 07/31/20 14:05 07/31/20 21:56 Stool Occult Blood Positive (NEG) White Blood Count 19.5 x10^3/uL (4.0-11.0) 16.8 x10^3/uL (4.0-11.0) Red Blood Count 4.25 x10^6/uL (3.50-5.40) 4.02 x10^6/uL (3.50-5.40) Hemoglobin 13.3 g/dL (12.0-15.5) 12.6 g/dL (12.0-15.5) Hematocrit 40.0 % (36.0-47.0) 37.6 % (36.0-47.0) Mean Corpuscular Volume 94 fL (79-100) 93 fL (79-100) Mean Corpuscular Hemoglobin 31 pg (25-35) 31 pg (25-35) Mean Corpuscular Hemoglobin Concent 33 g/dL (31-37) 34 g/dL (31-37) Red Cell Distribution Width 12.0 % (11.5-14.5) 12.0 % (11.5-14.5) Platelet Count 301 x10^3/uL (140-400) 259 x10^3/uL (140-400) Neutrophils (%) (Auto) 86 % (31-73) Lymphocytes (%) (Auto) 9 % (24-48) Monocytes (%) (Auto) 4 % (0-9) Eosinophils (%) (Auto) 0 % (0-3) Basophils (%) (Auto) 0 % (0-3) Neutrophils # (Auto) 16.8 x10^3/uL (1.8-7.7) Lymphocytes # (Auto) 1.8 x10^3/uL (1.0-4.8) Monocytes # (Auto) 0.8 x10^3/uL (0.0-1.1) Eosinophils # (Auto) 0.0 x10^3/uL (0.0-0.7) Basophils # (Auto) 0.1 x10^3/uL (0.0-0.2) Segmented Neutrophils % 92 % (35-66) Band Neutrophils % 2 % (0-9) Lymphocytes % 5 % (24-48) Monocytes % 1 % (0-10) Platelet Estimate Adequate (ADEQUATE) Sodium Level 144 mmol/L (136-145) Potassium Level 3.4 mmol/L (3.5-5.1) Chloride Level 106 mmol/L (98-107) Carbon Dioxide Level 31 mmol/L (21-32) Anion Gap 7 (6-14) Blood Urea Nitrogen 15 mg/dL (7-20) Creatinine 1.0 mg/dL (0.6-1.0) Estimated GFR (Cockcroft-Gault) 56.2 BUN/Creatinine Ratio 15 (6-20) Glucose Level 157 mg/dL (70-99) Calcium Level 9.5 mg/dL (8.5-10.1) Magnesium Level 2.2 mg/dL (1.8-2.4) Total Bilirubin 0.3 mg/dL (0.2-1.0) Aspartate Amino Transf (AST/SGOT) 14 U/L (15-37) Alanine Aminotransferase (ALT/SGPT) 16 U/L (14-59) Alkaline Phosphatase 42 U/L (46-116) Total Protein 7.5 g/dL (6.4-8.2) Albumin 4.0 g/dL (3.4-5.0) Albumin/Globulin Ratio 1.1 (1.0-1.7) Lipase 134 U/L (73-393) Urine Collection Type Void Urine Color Yellow Urine Clarity Cloudy Urine pH 7.5 (<5.0-8.0) Urine Specific [place] 1.010 (1.000-1.030) Urine Protein Negative mg/dL (NEG-TRACE) Urine Glucose (UA) Negative mg/dL (NEG) Urine Ketones (Stick) 15 mg/dL (NEG) Urine Blood Negative (NEG) Urine Nitrite Negative (NEG) Urine Bilirubin Negative (NEG) Urine Urobilinogen Dipstick 0.2 mg/dL (0.2 mg/dL) Urine Leukocyte Esterase Negative (NEG) Urine RBC 0 /HPF (0-2) Urine WBC Occ /HPF (0-4) Urine Squamous Epithelial Cells Few /LPF Urine Amorphous Sediment Present /HPF Urine Bacteria 0 /HPF (0-FEW) Test 08/01/20 03:35 08/01/20 03:55 Sodium Level 144 mmol/L (136-145) Potassium Level 3.3 mmol/L (3.5-5.1) Chloride Level 105 mmol/L (98-107) Carbon Dioxide Level 28 mmol/L (21-32) Anion Gap 11 (6-14) Blood Urea Nitrogen 7 mg/dL (7-20) Creatinine 0.8 mg/dL (0.6-1.0) Estimated GFR (Cockcroft-Gault) 72.7 Glucose Level 139 mg/dL (70-99) Calcium Level 8.6 mg/dL (8.5-10.1) White Blood Count 15.2 x10^3/uL (4.0-11.0) Red Blood Count 4.04 x10^6/uL (3.50-5.40) Hemoglobin 12.5 g/dL (12.0-15.5) Hematocrit 37.9 % (36.0-47.0) Mean Corpuscular Volume 94 fL (79-100) Mean Corpuscular Hemoglobin 31 pg (25-35) Mean Corpuscular Hemoglobin Concent 33 g/dL (31-37) Red Cell Distribution Width 12.5 % (11.5-14.5) Platelet Count 258 x10^3/uL (140-400) Neutrophils (%) (Auto) 82 % (31-73) Lymphocytes (%) (Auto) 13 % (24-48) Monocytes (%) (Auto) 5 % (0-9) Eosinophils (%) (Auto) 0 % (0-3) Basophils (%) (Auto) 0 % (0-3) Neutrophils # (Auto) 12.5 x10^3/uL (1.8-7.7) Lymphocytes # (Auto) 2.0 x10^3/uL (1.0-4.8) Monocytes # (Auto) 0.7 x10^3/uL (0.0-1.1) Eosinophils # (Auto) 0.0 x10^3/uL (0.0-0.7) Basophils # (Auto) 0.0 x10^3/uL (0.0-0.2) Assessment and Plan Assessmemt and Plan Problems Medical Problems: (1) Bloody diarrhea Status: Acute (2) Colitis Status: Acute (3) Lower abdominal pain Status: Acute Comment Review of Relevant I have reviewed the following items tommie (where applicable) has been applied. Medications: Current Medications Medications (Trade) Dose Ordered Sig/Susan Route PRN Reason Start Time Stop Time Status Last Admin Dose Admin Fentanyl Citrate (Fentanyl 2ml Vial) 50 mcg 1X ONCE IV 07/31/20 13:15 07/31/20 13:16 DC 07/31/20 13:20 Ondansetron HCl (Zofran) 4 mg 1X ONCE IV 07/31/20 13:15 07/31/20 13:16 DC 07/31/20 13:20 Sodium Chloride 1,000 ml @ 1,000 mls/hr 1X ONCE IV 07/31/20 13:15 07/31/20 14:14 DC 07/31/20 13:19 Fentanyl Citrate (Fentanyl 2ml Vial) 50 mcg 1X ONCE IV 07/31/20 14:00 07/31/20 14:01 DC 07/31/20 14:08 Iohexol (Omnipaque 300 Mg/ml) 60 ml 1X ONCE IV 07/31/20 14:15 07/31/20 14:16 DC 07/31/20 14:18 Hydromorphone HCl (Dilaudid) 0.5 mg 1X ONCE IVP 07/31/20 15:15 07/31/20 15:16 DC 07/31/20 15:25 Diphenhydramine HCl (Benadryl) 12.5 mg 1X ONCE IVP 07/31/20 15:15 07/31/20 15:16 DC 07/31/20 15:24 Ondansetron HCl (Zofran) 4 mg PRN Q8HRS PRN IV NAUSEA/VOMITING 07/31/20 15:15 08/03/20 06:00 08/01/20 03:43 Sodium Chloride 1,000 ml @ 0 mls/hr Q8H IV 07/31/20 15:15 07/31/20 18:26 DC 07/31/20 15:29 Metronidazole 100 ml @ 100 mls/hr 1X ONCE IV 07/31/20 15:15 07/31/20 16:14 DC 07/31/20 15:29 Ciprofloxacin/ Dextrose 200 ml @ 200 mls/hr 1X ONCE IV 07/31/20 15:15 07/31/20 16:14 DC 07/31/20 17:21 Lamotrigine (LaMICtal) 100 mg 1X ONCE PO 07/31/20 17:15 07/31/20 17:16 DC 07/31/20 17:20 Albuterol Sulfate (Ventolin Neb Soln) 2.5 mg PRN Q6HRS PRN NEB SHORTNESS OF BREATH 07/31/20 18:15 08/01/20 04:00 Lamotrigine (LaMICtal) 100 mg BID PO 07/31/20 21:00 08/01/20 07:49 Metronidazole 100 ml @ 100 mls/hr Q8HRS IV 07/31/20 22:00 08/01/20 06:21 Levetiracetam (Keppra) 1,000 mg BID PO 07/31/20 21:00 08/01/20 07:50 Pantoprazole Sodium (Protonix) 40 mg DAILYAC PO 08/01/20 07:30 08/01/20 06:23 Potassium Chloride/Dextrose/ Sod Cl 1,000 ml @ 100 mls/hr Q10H IV 07/31/20 20:00 08/01/20 06:22 Alprazolam (Xanax) 2 mg TID PO 07/31/20 19:00 08/01/20 07:50 Ciprofloxacin (Cipro) 500 mg BID PO 07/31/20 21:00 08/01/20 07:50 Fentanyl Citrate (Fentanyl 2ml Vial) 50 mcg PRN Q2HR PRN IVP PAIN 07/31/20 20:30 08/01/20 02:48 Fentanyl Citrate (Fentanyl 2ml Vial) 75 mcg 1X ONCE IVP 07/31/20 21:45 07/31/20 21:46 DC 07/31/20 22:32 Ondansetron HCl (Zofran) 4 mg 1X ONCE IVP 08/01/20 03:15 08/01/20 03:16 DC 08/01/20 03:44 Justifications for Admission Other Justification MARVIN CORBETT MD Aug 01, 2020 09:03
[2020-08-01] MEDS: CALCIUM CARBONATE 500 MG TABLET PO SCH ×3 (09:27→18:00)
[2020-08-01] MEDS: oxyCODONE/APAP 5/325 1 TAB TABLET PO PRN ×2 (10:18→20:00)
[2020-08-01 11:00] VITALS: BP 151/78
[2020-08-01] MEDS: metroNIDAZOLE 500 MG TABLET PO SCH ×2 (13:39→20:01)
[2020-08-01 15:00] VITALS: BP 135/79
[2020-08-01 19:20] VITALS: BP 143/69
[2020-08-01] MEDS: ONDANSETRON ODT 4 MG TAB.RAPDIS. PO PRN (19:45)
[2020-08-01] MEDS: LACTOBACILLUS RHAMNOSUS GG 1 CAPSULE. PO SCH (19:46)
[2020-08-01] MEDS: ATORVASTATIN CALCIUM 40 MG TABLET. PO SCH (19:47)
[2020-08-01 23:17] VITALS: BP 134/72
[2020-08-02] MEDS: POTASSIUM CL 20MEQ D5-0.45NACL 1,000 ML IV SCH ×3 (02:00→22:00)
[2020-08-02] MEDS: oxyCODONE/APAP 5/325 1 TAB TABLET PO PRN ×4 (02:19→22:50)
[2020-08-02 03:06] VITALS: BP 100/50
[2020-08-02] MEDS: metroNIDAZOLE 500 MG TABLET PO SCH ×3 (05:57→22:50)
[2020-08-02] MEDS: PANTOPRAZOLE 40 MG TABLET.DR. PO SCH (05:57)
[2020-08-02] MEDS: ALBUTEROL SULFATE 2.5 MG/3 ML NEBU. NEB PRN (06:58)
[2020-08-02 07:27] VITALS: BP 135/73
[2020-08-02 07:46] LABS: C-REACTIVE PROTEIN 18.7 mg/L (0-3.3); CALCIUM 8.8 mg/dL (8.5-10.1); CREATININE 0.8 mg/dL (0.6-1.0); GFR 72.7; POTASSIUM 3.4 mmol/L (3.5-5.1)
[2020-08-02] MEDS: CIPROFLOXACIN HCL 250 MG TABLET. PO SCH ×2 (07:49→21:13)
[2020-08-02] MEDS: levETIRAcetam 500 MG TABLET PO SCH ×2 (07:49→21:12)
[2020-08-02] MEDS: ALPRAZolam 1 MG TABLET PO SCH ×3 (07:49→21:12)
[2020-08-02] MEDS: CALCIUM CARBONATE 500 MG TABLET PO SCH ×3 (07:50→18:07)
[2020-08-02] MEDS: LACTOBACILLUS RHAMNOSUS GG 1 CAPSULE. PO SCH ×2 (07:50→21:12)
[2020-08-02] MEDS: lamoTRIgine 100 MG TABLET. PO SCH ×2 (07:50→21:12)
[2020-08-02 07:53] LABS: BASO % 0 % (0-3); EOS % 0 % (0-3); HEMATOCRIT 36.5 % (36.0-47.0); LYMPH # 3.6 x10^3/uL (1.0-4.8); LYMPH % 29 % (24-48); MEAN CORPUSCULAR HEMOGLOBIN 31 pg (25-35); MEAN CORPUSCULAR HGB CONC 33 g/dL (31-37); MEAN CORPUSCULAR VOLUME 95 fL (79-100); MONO # 0.8 x10^3/uL (0.0-1.1); MONO % 6 % (0-9); NEUT # 8.2 x10^3/uL (1.8-7.7); NEUT % 65 % (31-73); PLATELET COUNT 215 x10^3/uL (140-400); RED BLOOD COUNT 3.86 x10^6/uL (3.50-5.40); RED CELL DISTRIBUTION WIDTH 12.1 % (11.5-14.5); WHITE BLOOD COUNT 12.7 x10^3/uL (4.0-11.0)
--- NOTE | 2020-08-02 08:01 | PDOC ---
[employer] PROGRESS NOTE Date of Service DOS: DATE: 08/02/20 TIME: 08:00 Chief Complaint Chief Complaint acute abdominal pain with nausea and vomiting hematochezia, acute blood loss per rectum, check Q6 CBC overnight, Hgb is excellent range now acute infectious colitis, IV fluid, Iv abx given, sepsis from Colitis Anxiety disorder, home meds, seizure disorder, Keppra, lamictal History of traumatic brain injury, remote "that has caused all my problems" hx of tobacco use, has quit, hypokalemia, will bolus NS, and start replacement fluid History of Present Illness History of Present Illness Ms. Keane is a 60 year old female admit for bloody stool, acute abd pain and vomiting. She reports more than 5 episodes of bloody diarrhea today, and there is some in the bedside commode in the ER, mostly water, some blood. only taking aspirin, no other change, sudden nausea and pain started today, then bloody diarrhea, she is upset about being late on her Xanax when I saw her and was upset about NPO order. . Patient complains of nausea and sharp cramping lower abdominal pain at this time. pain 8;10 08/02/2020 Patient seen and evaluated bedside. Afebrile. Currently on p.o. antibiotics. Still some left lower quadrant abdominal tenderness he is tolerating clear liquid diet well, currently feels uncomfortable discharging home because she is having continued hematochezia. Hemoglobin stable. C. difficile and enteric stool studies pending. Will advance to GI soft diet and anticipate discharge tomorrow if tolerating. 08/01/2020 Patient seen and evaluated. Afebrile. Still with some bloody diarrhea and vomiting this morning, however she feels this is improving. She has not attempted anything by mouth, will advance diet to clear liquids. Will continue with IV antibiotics. Plan to discharge patient home with Flagyl and ciprofloxacin, and recommend outpatient follow-up with GI and PCP. If does not continue to improve will consult GI for further recommendations. Vitals/I&O Vitals/I&O: Vital Signs Date Time Temp Pulse Resp B/P (MAP) Pulse Ox O2 Delivery O2 Flow Rate FiO2 08/02/20 07:27 97.8 73 18 135/73 (93) 94 Room Air 97.8 I & O 08/01/20 08/01/20 08/02/20 15:00 23:00 07:00 Intake Total 250 ml 300 ml 360 ml Balance 250 ml 300 ml 360 ml Physical Exam General: Alert, Cooperative, No acute distress Heart: Regular rate Lungs: Clear Abdomen: Normal bowel sounds, Soft, Other (Left lower quadrant abdominal tenderness) Extremities: No clubbing, No edema Skin: No rashes Labs Labs: Laboratory Tests Test 08/02/20 05:40 White Blood Count 12.7 x10^3/uL (4.0-11.0) Red Blood Count 3.86 x10^6/uL (3.50-5.40) Hemoglobin 12.0 g/dL (12.0-15.5) Hematocrit 36.5 % (36.0-47.0) Mean Corpuscular Volume 95 fL (79-100) Mean Corpuscular Hemoglobin 31 pg (25-35) Mean Corpuscular Hemoglobin Concent 33 g/dL (31-37) Red Cell Distribution Width 12.1 % (11.5-14.5) Platelet Count 215 x10^3/uL (140-400) Neutrophils (%) (Auto) 65 % (31-73) Lymphocytes (%) (Auto) 29 % (24-48) Monocytes (%) (Auto) 6 % (0-9) Eosinophils (%) (Auto) 0 % (0-3) Basophils (%) (Auto) 0 % (0-3) Neutrophils # (Auto) 8.2 x10^3/uL (1.8-7.7) Lymphocytes # (Auto) 3.6 x10^3/uL (1.0-4.8) Monocytes # (Auto) 0.8 x10^3/uL (0.0-1.1) Eosinophils # (Auto) 0.0 x10^3/uL (0.0-0.7) Basophils # (Auto) 0.0 x10^3/uL (0.0-0.2) Sodium Level 146 mmol/L (136-145) Potassium Level 3.4 mmol/L (3.5-5.1) Chloride Level 108 mmol/L (98-107) Carbon Dioxide Level 30 mmol/L (21-32) Anion Gap 8 (6-14) Creatinine 0.8 mg/dL (0.6-1.0) Estimated GFR (Cockcroft-Gault) 72.7 Glucose Level 95 mg/dL (70-99) Calcium Level 8.8 mg/dL (8.5-10.1) C-Reactive Protein, Quantitative 18.7 mg/L (0-3.3) Assessment and Plan Assessmemt and Plan Problems Medical Problems: (1) Bloody diarrhea Status: Acute (2) Colitis Status: Acute (3) Lower abdominal pain Status: Acute Comment Review of Relevant I have reviewed the following items tommie (where applicable) has been applied. Medications: Current Medications Medications (Trade) Dose Ordered Sig/Susan Route PRN Reason Start Time Stop Time Status Last Admin Dose Admin Atorvastatin Calcium (Lipitor) 80 mg QHS PO 08/01/20 21:00 08/01/20 19:47 Calcium Carbonate/ Glycine (Oscal) 500 mg TIDAFTMEAL PO 08/01/20 09:30 08/02/20 07:50 Oxycodone/ Acetaminophen (Percocet 5/325) 1 tab PRN Q4HRS PRN PO MODERATE TO SEVERE PAIN 08/01/20 10:15 08/02/20 02:19 Metronidazole (Flagyl) 500 mg Q8HRS PO 08/01/20 14:00 08/02/20 05:57 Lactobacillus Rhamnosus (Culturelle) 1 cap BID PO 08/01/20 21:00 08/02/20 07:50 Justifications for Admission Other Justification MARVIN CORBETT MD Aug 02, 2020 08:01
[2020-08-02 10:10] VITALS: BP 104/63
[2020-08-02 14:22] VITALS: BP 116/74
[2020-08-02] MEDS: ONDANSETRON ODT 4 MG TAB.RAPDIS. PO PRN ×2 (15:40→22:50)
[2020-08-02 19:30] VITALS: BP 145/91
[2020-08-02] MEDS: ZOLPIDEM 5 MG TABLET. PO PRN (21:12)
[2020-08-02] MEDS: ATORVASTATIN CALCIUM 40 MG TABLET. PO SCH (21:13)
[2020-08-02 23:12] VITALS: BP 140/87
[2020-08-03 03:31] VITALS: BP 104/61
[2020-08-03] MEDS: PANTOPRAZOLE 40 MG TABLET.DR. PO SCH (05:41)
[2020-08-03] MEDS: metroNIDAZOLE 500 MG TABLET PO SCH ×3 (05:41→21:20)
[2020-08-03 06:53] LABS: BASO % 0 % (0-3); EOS % 0 % (0-3); HEMATOCRIT 37.2 % (36.0-47.0); HEMOGLOBIN 12.3 g/dL (12.0-15.5); LYMPH # 3.8 x10^3/uL (1.0-4.8); LYMPH % 33 % (24-48); MEAN CORPUSCULAR HEMOGLOBIN 31 pg (25-35); MEAN CORPUSCULAR HGB CONC 33 g/dL (31-37); MEAN CORPUSCULAR VOLUME 94 fL (79-100); MONO # 0.7 x10^3/uL (0.0-1.1); MONO % 6 % (0-9); NEUT % 60 % (31-73); PLATELET COUNT 226 x10^3/uL (140-400); RED BLOOD COUNT 3.95 x10^6/uL (3.50-5.40); WHITE BLOOD COUNT 11.7 x10^3/uL (4.0-11.0)
[2020-08-03 07:00] VITALS: BP 137/85
[2020-08-03 07:05] LABS: CALCIUM 8.6 mg/dL (8.5-10.1); CREATININE 0.8 mg/dL (0.6-1.0); GFR 72.7; POTASSIUM 3.2 mmol/L (3.5-5.1)
[2020-08-03] MEDS: POTASSIUM CL 20MEQ D5-0.45NACL 1,000 ML IV SCH ×2 (08:00→17:32)
[2020-08-03] MEDS: CALCIUM CARBONATE 500 MG TABLET PO SCH ×3 (09:01→17:32)
[2020-08-03] MEDS: levETIRAcetam 500 MG TABLET PO SCH ×2 (09:01→21:20)
[2020-08-03] MEDS: LACTOBACILLUS RHAMNOSUS GG 1 CAPSULE. PO SCH ×2 (09:01→21:18)
[2020-08-03] MEDS: CIPROFLOXACIN HCL 250 MG TABLET. PO SCH ×2 (09:01→21:18)
[2020-08-03] MEDS: lamoTRIgine 100 MG TABLET. PO SCH ×3 (09:01→21:19)
[2020-08-03] MEDS: ALPRAZolam 1 MG TABLET PO SCH ×3 (09:01→21:20)
--- NOTE | 2020-08-03 10:28 | NUR ---
SW following. Discussed with RN, pt from [facility], room air, GI soft. RN advised pt can discharge if tolerates diet. RN advised no SW needs at this time. SW will continue to follow.
[2020-08-03 11:00] VITALS: BP 143/84
--- NOTE | 2020-08-03 12:03 | PDOC ---
[employer] PROGRESS NOTE Date of Service DOS: DATE: 08/03/20 TIME: 11:59 Chief Complaint Chief Complaint Acute abdominal pain with nausea and vomiting Hematochezia, acute blood loss per rectum, check Q6 CBC overnight, Hgb is excellent range now Seizure disorder Anxiety Tobacco abuse Hypokalemia History of Present Illness History of Present Illness 08/03/2020 Patient seen and examined Chart reviewed Discussed with RN She is still having nausea and pain Not really tolerating her diet Ms. Keane is a 60 year old female admit for bloody stool, acute abd pain and vomiting. She reports more than 5 episodes of bloody diarrhea today, and there is some in the bedside commode in the ER, mostly water, some blood. only taking aspirin, no other change, sudden nausea and pain started today, then bloody diarrhea, she is upset about being late on her Xanax when I saw her and was upset about NPO order. . Patient complains of nausea and sharp cramping lower abdominal pain at this time. pain 8;10 08/02/2020 Patient seen and evaluated bedside. Afebrile. Currently on p.o. antibiotics. Still some left lower quadrant abdominal tenderness he is tolerating clear liquid diet well, currently feels uncomfortable discharging home because she is having continued hematochezia. Hemoglobin stable. C. difficile and enteric stool studies pending. Will advance to GI soft diet and anticipate discharge tomorrow if tolerating. 08/01/2020 Patient seen and evaluated. Afebrile. Still with some bloody diarrhea and vomiting this morning, however she feels this is improving. She has not attempted anything by mouth, will advance diet to clear liquids. Will continue with IV antibiotics. Plan to discharge patient home with Flagyl and ciprofloxacin, and recommend outpatient follow-up with GI and PCP. If does not continue to improve will consult GI for further recommendations. Vitals/I&O Vitals/I&O: Vital Signs Date Time Temp Pulse Resp B/P (MAP) Pulse Ox O2 Delivery O2 Flow Rate FiO2 08/03/20 11:00 98.1 67 18 143/84 (103) 98 Room Air 98.1 I & O 08/02/20 08/02/20 08/03/20 15:00 23:00 07:00 Intake Total 300 ml 450 ml 240 ml Output Total 400 ml Balance -100 ml 450 ml 240 ml Physical Exam General: Alert, Cooperative, No acute distress Heart: Regular rate Lungs: Clear Abdomen: Normal bowel sounds, Soft, Other (Left lower quadrant abdominal tenderness) Extremities: No clubbing, No edema Skin: No rashes Labs Labs: Laboratory Tests Test 08/03/20 06:15 White Blood Count 11.7 x10^3/uL (4.0-11.0) Red Blood Count 3.95 x10^6/uL (3.50-5.40) Hemoglobin 12.3 g/dL (12.0-15.5) Hematocrit 37.2 % (36.0-47.0) Mean Corpuscular Volume 94 fL (79-100) Mean Corpuscular Hemoglobin 31 pg (25-35) Mean Corpuscular Hemoglobin Concent 33 g/dL (31-37) Red Cell Distribution Width 12.0 % (11.5-14.5) Platelet Count 226 x10^3/uL (140-400) Neutrophils (%) (Auto) 60 % (31-73) Lymphocytes (%) (Auto) 33 % (24-48) Monocytes (%) (Auto) 6 % (0-9) Eosinophils (%) (Auto) 0 % (0-3) Basophils (%) (Auto) 0 % (0-3) Neutrophils # (Auto) 7.0 x10^3/uL (1.8-7.7) Lymphocytes # (Auto) 3.8 x10^3/uL (1.0-4.8) Monocytes # (Auto) 0.7 x10^3/uL (0.0-1.1) Eosinophils # (Auto) 0.0 x10^3/uL (0.0-0.7) Basophils # (Auto) 0.0 x10^3/uL (0.0-0.2) Sodium Level 142 mmol/L (136-145) Potassium Level 3.2 mmol/L (3.5-5.1) Chloride Level 105 mmol/L (98-107) Carbon Dioxide Level 31 mmol/L (21-32) Anion Gap 6 (6-14) Blood Urea Nitrogen 3 mg/dL (7-20) Creatinine 0.8 mg/dL (0.6-1.0) Estimated GFR (Cockcroft-Gault) 72.7 Glucose Level 101 mg/dL (70-99) Calcium Level 8.6 mg/dL (8.5-10.1) Assessment and Plan Assessmemt and Plan Problems Medical Problems: (1) Bloody diarrhea Status: Acute (2) Colitis Status: Acute (3) Lower abdominal pain Status: A Colitis Abdominal pain Nausea vomiting Hematochezia Traumatic brain injury Plan IV antibiotics (Cipro and Flagyl) IV fluids Home meds DVT prophylaxis Full code Try and advance diet Appreciate subspecialist input Trend labs Comment Review of Relevant I have reviewed the following items tommie (where applicable) has been applied. Medications: Current Medications Medications (Trade) Dose Ordered Sig/Susan Route PRN Reason Start Time Stop Time Status Last Admin Dose Admin Zolpidem Tartrate (Ambien) 5 mg PRN QHS PRN PO INSOMNIA 08/02/20 19:15 08/02/20 21:12 Justifications for Admission Other Justification KATHARINA DOUGLAS III DO Aug 03, 2020 12:03
[2020-08-03 15:06] VITALS: BP 130/85
[2020-08-03] MEDS: ALBUTEROL SULFATE 2.5 MG/3 ML NEBU. NEB PRN (15:11)
[2020-08-03 19:00] VITALS: BP 144/74
[2020-08-03] MEDS: ATORVASTATIN CALCIUM 40 MG TABLET. PO SCH (21:20)
[2020-08-03] MEDS: ZOLPIDEM 5 MG TABLET. PO PRN (21:21)
[2020-08-03] MEDS: ONDANSETRON ODT 4 MG TAB.RAPDIS. PO PRN (22:38)
[2020-08-03 23:00] VITALS: BP 120/80
[2020-08-04 02:59] VITALS: BP 121/77
[2020-08-04] MEDS: POTASSIUM CL 20MEQ D5-0.45NACL 1,000 ML IV SCH ×2 (03:06→14:00)
[2020-08-04] MEDS: metroNIDAZOLE 500 MG TABLET PO SCH ×2 (05:48→14:07)
[2020-08-04] MEDS: PANTOPRAZOLE 40 MG TABLET.DR. PO SCH (05:48)
[2020-08-04 06:59] LABS: BASO % 1 % (0-3); EOS # 0.1 x10^3/uL (0.0-0.7); EOS % 1 % (0-3); HEMATOCRIT 35.9 % (36.0-47.0); HEMOGLOBIN 12.1 g/dL (12.0-15.5); LYMPH % 40 % (24-48); MEAN CORPUSCULAR HEMOGLOBIN 32 pg (25-35); MEAN CORPUSCULAR HGB CONC 34 g/dL (31-37); MEAN CORPUSCULAR VOLUME 95 fL (79-100); MONO # 0.6 x10^3/uL (0.0-1.1); MONO % 8 % (0-9); NEUT # 3.9 x10^3/uL (1.8-7.7); NEUT % 51 % (31-73); PLATELET COUNT 230 x10^3/uL (140-400); RED BLOOD COUNT 3.78 x10^6/uL (3.50-5.40); RED CELL DISTRIBUTION WIDTH 12.3 % (11.5-14.5); WHITE BLOOD COUNT 7.7 x10^3/uL (4.0-11.0)
[2020-08-04 07:00] VITALS: BP 127/71
[2020-08-04 07:01] LABS: CALCIUM 8.5 mg/dL (8.5-10.1); CREATININE 0.8 mg/dL (0.6-1.0); GFR 72.7; POTASSIUM 3.8 mmol/L (3.5-5.1)
[2020-08-04] MEDS: ONDANSETRON ODT 4 MG TAB.RAPDIS. PO PRN (08:40)
[2020-08-04] MEDS: CIPROFLOXACIN HCL 250 MG TABLET. PO SCH (08:40)
[2020-08-04] MEDS: ALPRAZolam 1 MG TABLET PO SCH ×2 (08:41→13:31)
[2020-08-04] MEDS: LACTOBACILLUS RHAMNOSUS GG 1 CAPSULE. PO SCH (08:41)
[2020-08-04] MEDS: levETIRAcetam 500 MG TABLET PO SCH (08:41)
[2020-08-04] MEDS: CALCIUM CARBONATE 500 MG TABLET PO SCH ×2 (08:41→13:31)
[2020-08-04] MEDS ORDERED: lamoTRIgine 100 MG TABLET. PO SCH (09:00)
--- NOTE | 2020-08-04 09:35 | NUR ---
SW following. Discussed with RN, pt from [facility], room air, GI soft. Pt wanting to discharge home today. RN advised no SW needs. SW will continue to follow.
[2020-08-04 11:02] VITALS: BP 122/68
--- NOTE | 2020-08-04 11:14 | PDOC ---
[employer] PROGRESS NOTE Date of Service DOS: DATE: 08/04/20 TIME: 11:10 Chief Complaint Chief Complaint Acute abdominal pain with nausea and vomiting Hematochezia, acute blood loss per rectum, check Q6 CBC overnight, Hgb is excellent range now Seizure disorder Anxiety Tobacco abuse Hypokalemia History of Present Illness History of Present Illness 08/04/2020 Patient seen and examined Chart reviewed Discussed with RN Nausea and pain improved 08/03/2020 Patient seen and examined Chart reviewed Discussed with RN She is still having nausea and pain Not really tolerating her diet Ms. Keane is a 60 year old female admit for bloody stool, acute abd pain and vomiting. She reports more than 5 episodes of bloody diarrhea today, and there is some in the bedside commode in the ER, mostly water, some blood. only taking aspirin, no other change, sudden nausea and pain started today, then bloody diarrhea, she is upset about being late on her Xanax when I saw her and was upset about NPO order. . Patient complains of nausea and sharp cramping lower abdominal pain at this time. pain 8;10 08/02/2020 Patient seen and evaluated bedside. Afebrile. Currently on p.o. antibiotics. Still some left lower quadrant abdominal tenderness he is tolerating clear liquid diet well, currently feels uncomfortable discharging home because she is having continued hematochezia. Hemoglobin stable. C. difficile and enteric st ool studies pending. Will advance to GI soft diet and anticipate discharge tomorrow if tolerating. 08/01/2020 Patient seen and evaluated. Afebrile. Still with some bloody diarrhea and vomiting this morning, however she feels this is improving. She has not attempted anything by mouth, will advance diet to clear liquids. Will continue with IV antibiotics. Plan to discharge patient home with Flagyl and ciprofloxacin, and recommend outpatient follow-up with GI and PCP. If does not continue to improve will consult GI for further recommendations. Vitals/I&O Vitals/I&O: Vital Signs Date Time Temp Pulse Resp B/P (MAP) Pulse Ox O2 Delivery O2 Flow Rate FiO2 08/04/20 08:00 Room Air 08/04/20 07:00 97.8 64 16 127/71 (89) 93 97.8 I & O 08/03/20 08/03/20 08/04/20 15:00 23:00 07:00 Intake Total 570 ml 1240 ml Balance 570 ml 1240 ml Physical Exam General: Alert, Cooperative, No acute distress Heart: Regular rate Lungs: Clear Abdomen: Normal bowel sounds, Soft, Other (Left lower quadrant abdominal tenderness) Extremities: No clubbing, No edema Skin: No rashes Labs Labs: Laboratory Tests Test 08/04/20 05:35 White Blood Count 7.7 x10^3/uL (4.0-11.0) Red Blood Count 3.78 x10^6/uL (3.50-5.40) Hemoglobin 12.1 g/dL (12.0-15.5) Hematocrit 35.9 % (36.0-47.0) Mean Corpuscular Volume 95 fL (79-100) Mean Corpuscular Hemoglobin 32 pg (25-35) Mean Corpuscular Hemoglobin Concent 34 g/dL (31-37) Red Cell Distribution Width 12.3 % (11.5-14.5) Platelet Count 230 x10^3/uL (140-400) Neutrophils (%) (Auto) 51 % (31-73) Lymphocytes (%) (Auto) 40 % (24-48) Monocytes (%) (Auto) 8 % (0-9) Eosinophils (%) (Auto) 1 % (0-3) Basophils (%) (Auto) 1 % (0-3) Neutrophils # (Auto) 3.9 x10^3/uL (1.8-7.7) Lymphocytes # (Auto) 3.0 x10^3/uL (1.0-4.8) Monocytes # (Auto) 0.6 x10^3/uL (0.0-1.1) Eosinophils # (Auto) 0.1 x10^3/uL (0.0-0.7) Basophils # (Auto) 0.0 x10^3/uL (0.0-0.2) Sodium Level 142 mmol/L (136-145) Potassium Level 3.8 mmol/L (3.5-5.1) Chloride Level 107 mmol/L (98-107) Carbon Dioxide Level 29 mmol/L (21-32) Anion Gap 6 (6-14) Blood Urea Nitrogen 4 mg/dL (7-20) Creatinine 0.8 mg/dL (0.6-1.0) Estimated GFR (Cockcroft-Gault) 72.7 Glucose Level 101 mg/dL (70-99) Calcium Level 8.5 mg/dL (8.5-10.1) Assessment and Plan Assessmemt and Plan Problems Medical Problems: (1) Bloody diarrhea Status: Acute (2) Colitis Status: Acute (3) Lower abdominal pain Status: Acute Colitis Abdominal pain Nausea vomiting Hematochezia Traumatic brain injury Plan D/C Today Continue Cipro and Flagyl PO daily at home Comment Review of Relevant I have reviewed the following items tommie (where applicable) has been applied. Medications: Current Medications Medications (Trade) Dose Ordered Sig/Susan Route PRN Reason Start Time Stop Time Status Last Admin Dose Admin Lamotrigine (LaMICtal) 100 mg DAILY PO 08/04/20 09:00 08/04/20 08:41 Lamotrigine (LaMICtal) 50 mg BID@1400,2100 PO 08/03/20 15:30 08/03/20 21:19 Justifications for Admission Other Justification KATHARINA DOUGLAS III DO Aug 04, 2020 11:14
--- NOTE | 2020-08-04 12:03 | DS ---
DATE OF DISCHARGE: 08/04/2020 ADMISSION DIAGNOSIS: Colitis. DISCHARGE DIAGNOSIS: Resolving colitis. HOSPITAL COURSE: The patient is a pleasant middle-aged female who presented with abdominal pain, was noted to have colitis on imaging. We admitted her, gave her IV antibiotics and over the past few days, she is doing better. Today, I saw her and examined her. She wants to go home. I left a prescription for p.o. Cipro and p.o. Flagyl. DISPOSITION: Home. ACTIVITY: As tolerated. DIET: Low sodium. MEDICATIONS: Please see the MRAD. We continued her albuterol, alprazolam 10 t.i.d., aspirin 81 a day, Lamictal 100 b.i.d., Keppra 1000 b.i.d., omeprazole 40 a day, p.r.n. Zofran and Crestor 40 a day and again we left her prescriptions for Cipro and Flagyl. TOTAL TIME: 34 minutes. KATHARINA DOUGLAS DO DR: [email or web address] JOB#: [id number] / [id number]
[2020-08-04] MEDS: lamoTRIgine 100 MG TABLET. PO SCH (13:31)
--- NOTE | 2020-08-04 14:56 | NUR ---
Pt discharged home with self care. Discharge instructions and prescriptions discussed. Pt verbalized understanding. Assisted to wheelchair and was secured in car with brother in law.
== END 2020-08-04 14:58 | disposition home or self-care (01) | DRG 872 ==
LOC: ER 12:16 → ED HOLD 15:05 → 4 NORTH 18:45
PROVIDERS: ADMIT Internal Medicine; ATTEND Internal Medicine
DX: A41.9 Sepsis, unspecified organism (principal); A09 Infectious gastroenteritis and colitis, unspecified; E87.6 Hypokalemia; F31.9 Bipolar disorder, unspecified; F43.10 Post-traumatic stress disorder, unspecified; G40.909 Epilepsy, unspecified, not intractable, without status epilepticus; J45.909 Unspecified asthma, uncomplicated; G43.909 Migraine, unspecified, not intractable, without status migrainosus; K21.9 Gastro-esophageal reflux disease without esophagitis; R58 Hemorrhage, not elsewhere classified; Z88.5 Allergy status to narcotic agent; Z88.1 Allergy status to other antibiotic agents; Z88.8 Allergy status to other drugs, medicaments and biological substances; Z82.3 Family history of stroke; Z82.49 Family history of ischemic heart disease and other diseases of the circulatory system; Z85.41 Personal history of malignant neoplasm of cervix uteri; Z87.820 Personal history of traumatic brain injury; Z90.710 Acquired absence of both cervix and uterus; Z87.891 Personal history of nicotine dependence
CPT/HCPCS: 36415; 74177; 80048; 80053; 81001; 82274; 83690; 83735; 85007; 85025; 85027; 86140; 94640; 94760; 96365; 96366; 96368; 96375; J0744; J1170; J1200; J2405; J3010; J3480; J3490; J7030; Q9967; 99285-25; G0378; J7613